=== PATIENT | female | born 1965 | race Hispanic/Latino ===

== ENCOUNTER 2018-12-24 03:57 | Inpatient (IN) | payer BC ==
[2018-12-24 04:23] LABS: APPEARANCE,URINE Clear (CLEAR); BILIRUBIN,URINE Negative (NEGATIVE); COLOR,URINE Yellow (YELLOW); GLUCOSE, URINE (UA) Negative (NEGATIVE); KETONES,URINE Negative (NEGATIVE); LEUKOCYTE ESTERASE ,URINE Trace (NEGATIVE); NITRATE,URINE Negative (NEGATIVE); OCCULT BLOOD,URINE Negative (NEGATIVE); PROTEIN,URINE Negative (NEGATIVE)
[2018-12-24] MEDS ORDERED: MORPHINE SULFATE 4 MG/1ML SYG ONE (04:24)
[2018-12-24] MEDS ORDERED: ONDANSETRON HCL 4 MG/2 ML VIAL ONE ×2 (04:24→05:44)
[2018-12-24 04:42] LABS: BACTERIA,URINE Few /HPF (None Seen); RBC,URINE 0-1 /HPF (0-1)
[2018-12-24 04:43] LABS: BASOPHILS % (AUTO) 0.4 % (0.0-5.0); EOSINOPHILS % (AUTO) 0.6 % (0.0-8.0); HEMATOCRIT 41.5 % (36-48); MEAN CORPUSCULAR HEMOGLOBIN 27.4 pg (27.0-33.0); MEAN CORPUSCULAR HGB CONC 34.4 g/dL (32.0-36.0); MEAN CORPUSCULAR VOLUME 79.8 fL (79-99); MONOCYTES % (AUTO) 9.9 % (3.0-13.0); NEUTROPHILS % (AUTO) 50.1 % (40.0-77.0); NUCLEATED RED BLOOD CELLS 0.1 % (0.0-0.19); PLATELET COUNT (AUTO) 209 K/uL (130-400); RED CELL DISTRIBUTION WIDTH 13.3 % (11.0-15.5); WHITE BLOOD COUNT (AUTO) 7.8 K/uL (4.8-10.8)
[2018-12-24 04:53] LABS: CARBON DIOXIDE 28 mmol/L (21-32); CHLORIDE 107 mmol/L (101-111); CREATININE 0.5 mg/dL (0.5-1.5); GLOMERULAR FILTR. RATE CALC 138 mL/min (>60); GLUCOSE,RANDOM 116 mg/dL (70-105); POTASSIUM 4.3 mmol/L (3.5-5.1); SODIUM SERUM 144 mmol/L (136-145); UREA NITROGEN, BLOOD 14 mg/dL (7-18)
[2018-12-24 04:55] LABS: INR 1.03 (0.85-1.15); PARTIAL THROMBOPLASTIN TIME 27.3 SEC (26.3-35.5); PROTHROMBIN TIME 10.8 SEC (9.6-11.6)
[2018-12-24 04:57] LABS: ALANINE AMINOTRANSFERASE 48 U/L (12-78); ALBUMIN 3.9 g/dL (3.5-5.0); ASPARTATE AMINOTRANSFERASE 45 U/L (10-37); BILIRUBIN,DIRECT < 0.1 mg/dL (0.0-0.3); BILIRUBIN,TOTAL 0.6 mg/dL (0.2-1.0); LIPASE 293 U/L (114-286); TOTAL PROTEIN, SERUM 8.3 g/dL (6.0-8.3)
[2018-12-24] MEDS ORDERED: HYDROMORPHONE 1 MG/1 ML AMP ONE (05:45)
[2018-12-24] MEDS ORDERED: SODIUM CHLORIDE 0.9% 1000ML 1,000 ML IV SCH (06:33)
[2018-12-24] MEDS ORDERED: ONDANSETRON HCL 4 MG/2 ML VIAL IV PRN (06:45)
[2018-12-24] MEDS: CEFTRIAXONE SODIUM 1 GM IVP SCH (06:45)
[2018-12-24] MEDS ORDERED: MORPHINE SULFATE 2 MG/ML 1ML SYG IV PRN (06:45)
[2018-12-24] MEDS ORDERED: CEFTRIAXONE SODIUM 2 GM VIAL IVP SCH (06:45)
[2018-12-24] MEDS ORDERED: CEFTRIAXONE SODIUM 1 GM ONE (06:56)
[2018-12-24] MEDS ORDERED: DIATR MEGLU/DIATRIZOATE SODIUM 30 ML BOTTLE ONE (07:08)
[2018-12-24] MEDS ORDERED: ENOXAPARIN SODIUM 30 MG/0.3 ML SQ ONE (08:01)
[2018-12-24] MEDS: FAMOTIDINE/PF 20 MG/2 ML VIAL IV SCH ×2 (09:00→20:39)
[2018-12-24] MEDS: ENOXAPARIN SODIUM 30 MG/0.3 ML SQ SCH (09:00)
[2018-12-24] MEDS ORDERED: IOHEXOL-350 75 ML VIAL IV ONE (10:36)
[2018-12-24 11:15] VITALS: BP 123/65
[2018-12-24] MEDS ORDERED: PROP10TA10 PO (11:41)
[2018-12-24] MEDS ORDERED: METH10TA7 PO (11:41)
--- NOTE | 2018-12-24 13:30 | NUR ---
AMANDA العلي rounding on patient
[2018-12-24 16:00] VITALS: BP 121/63
[2018-12-24 19:28] VITALS: BP 119/71
[2018-12-24 23:26] VITALS: BP 125/70
[2018-12-25 03:30] VITALS: BP 129/72
[2018-12-25 05:21] LABS: CREATININE 0.4 mg/dL (0.5-1.5); POTASSIUM 3.3 mmol/L (3.5-5.1)
[2018-12-25] MEDS: CEFTRIAXONE SODIUM 1 GM IVP SCH (06:13)
[2018-12-25] MEDS ORDERED: ACETAMINOPHEN 325 MG TAB ONE (06:40)
[2018-12-25] MEDS ORDERED: ACETAMINOPHEN 325 MG TAB PO PRN (06:45)
[2018-12-25 07:18] LABS: BASOPHILS % (AUTO) 0.2 % (0.0-5.0); EOSINOPHILS % (AUTO) 0.5 % (0.0-8.0); HEMATOCRIT 36.8 % (36-48); LYMPHOCYTES % (AUTO) 29.1 % (21.0-51.0); MEAN CORPUSCULAR HEMOGLOBIN 27.1 pg (27.0-33.0); MEAN CORPUSCULAR HGB CONC 33.7 g/dL (32.0-36.0); MEAN CORPUSCULAR VOLUME 80.4 fL (79-99); MONOCYTES % (AUTO) 9.3 % (3.0-13.0); NEUTROPHILS % (AUTO) 60.9 % (40.0-77.0); NUCLEATED RED BLOOD CELLS 0.1 % (0.0-0.19); PLATELET COUNT (AUTO) 186 K/uL (130-400); RED BLOOD CELL COUNT(AUTO) 4.58 MIL/uL (4.00-5.50); RED CELL DISTRIBUTION WIDTH 13.2 % (11.0-15.5); WHITE BLOOD COUNT (AUTO) 7.6 K/uL (4.8-10.8)
[2018-12-25 08:00] VITALS: BP 119/61
[2018-12-25] MEDS: METHIMAZOLE 10 MG TAB PO SCH (10:03)
[2018-12-25] MEDS: ENOXAPARIN SODIUM 30 MG/0.3 ML SQ SCH (10:07)
[2018-12-25] MEDS: PROPRANOLOL HCL 10 MG TAB PO SCH (10:07)
[2018-12-25] MEDS: FAMOTIDINE/PF 20 MG/2 ML VIAL IV SCH ×2 (10:07→20:11)
[2018-12-25] MEDS: POTASSIUM CHLORIDE 20 MEQ ERTAB PO SCH (10:08)
[2018-12-25 12:00] VITALS: BP 121/67
[2018-12-25] MEDS ORDERED: POTASSIUM CHLORIDE 20 MEQ ERTAB PO PRN (15:00)
[2018-12-25] MEDS ORDERED: POTASSIUM CHLORIDE 10MEQ/100ML 100 ML IV PRN (15:00)
[2018-12-25] MEDS ORDERED: POTASSIUM CHLORIDE 10% ELIXIR 20 MEQ/15 ML UDCUP PO PRN (15:00)
[2018-12-25] MEDS ORDERED: LIDOCAINE HCL-MPF 1% 2ML VIAL IVP PRN (15:00)
--- NOTE | 2018-12-25 15:59 | NUR ---
DCP CM met with pt discussed dc plans. Pt is independent prior to admission, lives at home alone. Denies any equipments/services. Pt feels safe to go back home, still works and drives, arranges own needs. DC plan to home once table. CM to cont to follow up. Addendum: 12/25/18 at 1600 by HARRIS SANDHU LVN CM Amended: Links added.
[2018-12-25 16:00] VITALS: BP 111/73
--- NOTE | 2018-12-25 18:12 | NUR ---
SPOKE TO [place], DR WASHINGTON NOTIFIED OF NEW CONSULT, FOR SOME REASON THE DR HAD NOT BEEN CALLED YET, ALANA AND REPORT WAS GIVEN THAT DEZ WAS THE DR AND NO NEED FOR SX INTERVENTION. DR GARCES STATED HE DOES NOT KNOW THE PT. SO I CALLED DR WASHINGTON
--- NOTE | 2018-12-25 19:25 | NUR ---
SPOKE TO DR WASHINGTON, HE SAID HE WOULD SEE THE PT TOMORROW
[2018-12-25 20:00] VITALS: BP 120/63
[2018-12-25 23:13] VITALS: BP 113/61
[2018-12-26 03:28] VITALS: BP 121/67
[2018-12-26 04:19] LABS: BASOPHILS % (AUTO) 0.3 % (0.0-5.0); EOSINOPHILS % (AUTO) 0.9 % (0.0-8.0); HEMATOCRIT 37.4 % (36-48); LYMPHOCYTES % (AUTO) 35.7 % (21.0-51.0); MEAN CORPUSCULAR HEMOGLOBIN 27.7 pg (27.0-33.0); MEAN CORPUSCULAR HGB CONC 34.5 g/dL (32.0-36.0); MEAN CORPUSCULAR VOLUME 80.3 fL (79-99); MONOCYTES % (AUTO) 9.1 % (3.0-13.0); PLATELET COUNT (AUTO) 181 K/uL (130-400); RED BLOOD CELL COUNT(AUTO) 4.65 MIL/uL (4.00-5.50); RED CELL DISTRIBUTION WIDTH 13.3 % (11.0-15.5); WHITE BLOOD COUNT (AUTO) 7.4 K/uL (4.8-10.8)
[2018-12-26 04:33] LABS: CREATININE 0.4 mg/dL (0.5-1.5); POTASSIUM 3.5 mmol/L (3.5-5.1)
[2018-12-26] MEDS: CEFTRIAXONE SODIUM 1 GM IVP SCH (06:10)
[2018-12-26 08:00] VITALS: BP 115/64
[2018-12-26] MEDS: ENOXAPARIN SODIUM 30 MG/0.3 ML SQ SCH (09:00)
[2018-12-26] MEDS: FAMOTIDINE/PF 20 MG/2 ML VIAL IV SCH ×2 (09:19→21:18)
[2018-12-26] MEDS: PROPRANOLOL HCL 10 MG TAB PO SCH (09:19)
[2018-12-26] MEDS: METHIMAZOLE 10 MG TAB PO SCH (09:19)
[2018-12-26] MEDS: POTASSIUM CHLORIDE 20 MEQ ERTAB PO SCH (09:27)
[2018-12-26 12:02] VITALS: BP 121/73
[2018-12-26 16:00] VITALS: BP 130/67
[2018-12-26 20:15] VITALS: BP 123/73
[2018-12-27 00:34] VITALS: BP 110/66
[2018-12-27 04:00] VITALS: BP 122/76
[2018-12-27] MEDS: CEFTRIAXONE SODIUM 1 GM IVP SCH (06:07)
[2018-12-27] MEDS: POTASSIUM CHLORIDE 20 MEQ ERTAB PO SCH (06:09)
[2018-12-27 07:58] VITALS: BP 110/68
[2018-12-27] MEDS: ENOXAPARIN SODIUM 30 MG/0.3 ML SQ SCH (09:00)
[2018-12-27] MEDS: FAMOTIDINE/PF 20 MG/2 ML VIAL IV SCH (09:21)
[2018-12-27] MEDS: METHIMAZOLE 10 MG TAB PO SCH (09:21)
[2018-12-27] MEDS: PROPRANOLOL HCL 10 MG TAB PO SCH (09:21)
[2018-12-27] MEDS ORDERED: METR-172 PO (11:22)
[2018-12-27] MEDS ORDERED: LEVO500T89 PO (11:22)
[2018-12-27 12:00] VITALS: BP 111/69
--- NOTE | 2018-12-27 14:38 | NUR ---
INSTRUCTIONS DISCHARGE INSTRUCTIONS GIVEN TO PATIENT USING TEACH BACK. NEW PRESCRIPTIONS PLACED IN PACKET ALONG WITH ALL PRINTED INFORMATION AND MD INSTRUCTIONS. PATIENT WILL MAKE F/U APPOINTMENT DURING NEXT REGULAR BUSINESS DAY. IV REMOVED WITH TIP INTACT. DIRECT PRESSURE APPLIED UNTIL HEMOSTASIS ACHIEVED THEN SITE COVERED WITH GAUZE AND SECURED WITH A BAND-AID. PENDING RIDE HOME.
== END 2018-12-27 15:07 | disposition home or self-care (01) | DRG 389 ==
LOC: EDH 03:57 → OBSVTOIN 06:33 → EDHIP 06:33 → 4AH 11:39
PROVIDERS: ADMIT Internal Medicine; ATTEND Internal Medicine
DX: K56.609 Unspecified intestinal obstruction, unspecified as to partial versus complete obstruction (principal); K59.39 Other megacolon; N39.0 Urinary tract infection, site not specified; E05.90 Thyrotoxicosis, unspecified without thyrotoxic crisis or storm; K56.7 Ileus, unspecified; K80.20 Calculus of gallbladder without cholecystitis without obstruction; K59.00 Constipation, unspecified; R74.8 Abnormal levels of other serum enzymes; E87.6 Hypokalemia; Z98.891 History of uterine scar from previous surgery
CPT/HCPCS: 36415; 74176; 74177; 76705; 80048; 80076; 81001; 82948; 83690; 85025; 85610; 85730; 87088; A4218; G0378; J0696; J1170; J1650; J2270; J2405; J3490; Q9963; Q9967

== ENCOUNTER 2019-08-19 07:38 | Emergency (ER) | payer BC ==
[~2019-08-19 07:38] MED LIST: LEVO500T89 PO; METH10TA7 PO; METR-172 PO; PROP10TA10 PO
[2019-08-19] MEDS ORDERED: KETOROLAC TROMETHAMINE 30MG/ML ONE (08:05)
[2019-08-19] MEDS ORDERED: ONDANSETRON HCL 4 MG/2 ML VIAL ONE (08:05)
[2019-08-19] MEDS ORDERED: SODIUM CHLORIDE 0.9% 1000ML 1,000 ML IV ONE (08:06)
[2019-08-19] MEDS ORDERED: MORPHINE SULFATE 2 MG/ML 1ML SYG ONE (08:06)
[2019-08-19 08:09] LABS: BASOPHILS % (AUTO) 0.3 % (0.0-5.0); EOSINOPHILS % (AUTO) 0.8 % (0.0-8.0); HEMATOCRIT 44.3 % (36-48); LYMPHOCYTES % (AUTO) 36.9 % (21.0-51.0); MEAN CORPUSCULAR HEMOGLOBIN 26.7 pg (27.0-33.0); MEAN CORPUSCULAR HGB CONC 32.5 g/dL (32.0-36.0); MEAN CORPUSCULAR VOLUME 82.2 fL (79-99); MONOCYTES % (AUTO) 6.8 % (3.0-13.0); NEUTROPHILS % (AUTO) 54.9 % (40.0-77.0); PLATELET COUNT (AUTO) 232 K/uL (130-400); RED BLOOD CELL COUNT(AUTO) 5.39 MIL/uL (4.00-5.50); RED CELL DISTRIBUTION WIDTH 13.3 % (11.0-15.5); WHITE BLOOD COUNT (AUTO) 10.8 K/uL (4.8-10.8)
[2019-08-19 08:22] LABS: APPEARANCE,URINE Clear (CLEAR); BILIRUBIN,URINE Negative (NEGATIVE); COLOR,URINE Yellow (YELLOW); GLUCOSE, URINE (UA) Negative (NEGATIVE); KETONES,URINE Negative (NEGATIVE); LEUKOCYTE ESTERASE ,URINE Negative (NEGATIVE); NITRATE,URINE Negative (NEGATIVE); OCCULT BLOOD,URINE Negative (NEGATIVE); PROTEIN,URINE Negative (NEGATIVE); UROBILINOGEN,URINE 0.2 mg/dL (0.2-1.0)
[2019-08-19 08:27] LABS: CREATININE 0.6 mg/dL (0.5-1.5); POTASSIUM 3.8 mmol/L (3.5-5.1)
[2019-08-19 08:33] LABS: BILIRUBIN,TOTAL 0.5 mg/dL (0.2-1.0); TOTAL PROTEIN, SERUM 8.1 g/dL (6.0-8.3)
== END 2019-08-19 10:45 | disposition home or self-care (01) ==
LOC: EDH 07:38
DX: K80.20 Calculus of gallbladder without cholecystitis without obstruction (principal); E07.9 Disorder of thyroid, unspecified
CPT/HCPCS: 36415; 76705; 80053; 81003; 82150; 83690; 84484; 85025; 93005; 96361; 96374; 96375; 99285; J1885; J2405; J7030

== ENCOUNTER 2023-06-15 04:50 | Emergency (ER) | payer BC ==
[~2023-06-15] VITALS: Ht 162.6 cm; Wt 72.7 kg
[~2023-06-15 04:50] MED LIST changes: +LEVO-70 PO; -LEVO500T89 PO; +METH-387 PO; -METH10TA7 PO
[2023-06-15] MEDS ORDERED: 0.9%NACL 1000ML 1,000 ML IV ONE (05:30)
[2023-06-15] MEDS ORDERED: FAMOTIDINE 20MG VIAL IV ONE (05:30)
[2023-06-15] MEDS ORDERED: METOCLOPRAMIDE 10 MG/2 ML VIAL IVP ONE (05:30)
[2023-06-15] MEDS ORDERED: MORPHINE 4 MG SYG IVP ONE (05:30)
[2023-06-15 05:31] LABS: BASOPHILS # (AUTO) 0.04 K/uL (0.00-0.20); BASOPHILS % (AUTO) 0.3 % (0.0-5.0); EOSINOPHILS # (AUTO) 0.09 K/uL (0.00-0.70); EOSINOPHILS % (AUTO) 0.6 % (0.0-8.0); HEMATOCRIT 44.9 % (36-48); IMMATURE GRANULOCYTE ABSOLUTE 0.04 K/uL (0-1); LYMPHOCYTES # (AUTO) 2.6 K/uL (1.0-4.8); MEAN CORPUSCULAR HEMOGLOBIN 27.8 pg (27.0-33.0); MEAN CORPUSCULAR HGB CONC 33.4 g/dL (32.0-36.0); MEAN CORPUSCULAR VOLUME 83.1 fL (79-99); MONOCYTES # (AUTO) 0.6 K/uL (0.1-1.0); MONOCYTES % (AUTO) 4.5 % (3.0-13.0); NEUTROPHILS # (AUTO) 10.4 K/uL (1.8-7.7); NEUTROPHILS % (AUTO) 75.3 % (40.0-77.0); PLATELET COUNT (AUTO) 216 K/uL (130-400); RED CELL DISTRIBUTION WIDTH 12.7 % (11.0-15.5); WHITE BLOOD COUNT (AUTO) 13.9 K/uL (4.8-10.8)
[2023-06-15 05:32] LABS: BILIRUBIN,URINE NEGATIVE (NEGATIVE); COLOR,URINE YELLOW (YELLOW); GLUCOSE, URINE (UA) NEGATIVE (NEGATIVE); KETONES,URINE NEGATIVE (NEGATIVE); LEUKOCYTE ESTERASE ,URINE NEGATIVE Leu/uL (NEGATIVE); NITRATE,URINE NEGATIVE (NEGATIVE); OCCULT BLOOD,URINE NEGATIVE (NEGATIVE); PROTEIN,URINE 10 mg/dL (NEGATIVE); UROBILINOGEN,URINE 0.2 mg/dL (0.2-1.0)
[2023-06-15 05:37] LABS: ADD UA MICROSCOPIC YES; APPEARANCE,URINE SLIGHTLY CLOUDY (CLEAR)
[2023-06-15 05:46] LABS: MUCUS,URINE RARE LPF (None Seen); RBC,URINE 0-1 /HPF (0-1); SQUAMOUS EPITHELIAL CELL,UR MANY /HPF (0-2)
[2023-06-15 06:37] LABS: BILIRUBIN,TOTAL 0.6 mg/dL (0.2-1.0); CREATININE 0.6 mg/dL (0.5-1.5); TOTAL PROTEIN, SERUM 7.8 g/dL (6.0-8.3)
[2023-06-15] MEDS ORDERED: LIDOCAINE HCL 2% VISCOUS 15 ML UDCUP PO ONE (07:00)
[2023-06-15] MEDS ORDERED: MAG/ALUM/SIMETH 30 ML UDCUP PO ONE (07:00)
[2023-06-15] MEDS ORDERED: IOHEXOL 350 MG/ML 100ML INFUS..BTL IV ONE (07:04)
[2023-06-15] MEDS ORDERED: ONDA4TAB10 PO (08:04)
[2023-06-15] MEDS ORDERED: PANT20TA18 PO (08:04)
[2023-06-15 08:30] VITALS: BP 129/74; PULSE 74; RESP 16; O2SAT 97
== END 2023-06-15 08:29 | disposition home or self-care (01) ==
LOC: EDH 04:50
DX: R10.13 Epigastric pain (principal); R11.10 Vomiting, unspecified; Z79.899 Other long term (current) drug therapy; Z90.49 Acquired absence of other specified parts of digestive tract
CPT/HCPCS: 99284; 74178; 96374; 96375; 96361; 82550; 84484; 80053; 83690; 85025; 83605; 81001; 36415; 93005; J3490; J7030; J2270; J2765; Q9967

== ENCOUNTER 2023-08-03 10:01 | Emergency (ER) | payer BC ==
[~2023-08-03] VITALS: Ht 162.6 cm; Wt 68.0 kg
[~2023-08-03 10:01] MED LIST changes: +ONDA4TAB10 PO; +PANT20TA18 PO
[2023-08-03 10:51] VITALS: BP 149/75; PULSE 70; RESP 16
[2023-08-03 12:32] LABS: BASOPHILS # (AUTO) 0.03 K/uL (0.00-0.20); BASOPHILS % (AUTO) 0.3 % (0.0-5.0); EOSINOPHILS # (AUTO) 0.06 K/uL (0.00-0.70); EOSINOPHILS % (AUTO) 0.7 % (0.0-8.0); HEMATOCRIT 47.9 % (36-48); IMMATURE GRANULOCYTE ABSOLUTE 0.03 K/uL (0-1); LYMPHOCYTES # (AUTO) 2.7 K/uL (1.0-4.8); LYMPHOCYTES % (AUTO) 31.8 % (21.0-51.0); MEAN CORPUSCULAR HEMOGLOBIN 28.1 pg (27.0-33.0); MEAN CORPUSCULAR HGB CONC 32.8 g/dL (32.0-36.0); MEAN CORPUSCULAR VOLUME 85.8 fL (79-99); MONOCYTES # (AUTO) 0.6 K/uL (0.1-1.0); MONOCYTES % (AUTO) 7.1 % (3.0-13.0); NEUTROPHILS # (AUTO) 5.1 K/uL (1.8-7.7); NEUTROPHILS % (AUTO) 59.8 % (40.0-77.0); PLATELET COUNT (AUTO) 233 K/uL (130-400); RED BLOOD CELL COUNT(AUTO) 5.58 MIL/uL (4.00-5.50); RED CELL DISTRIBUTION WIDTH 13.9 % (11.0-15.5); WHITE BLOOD COUNT (AUTO) 8.6 K/uL (4.8-10.8)
[2023-08-03 12:39] LABS: INR 0.94 (0.85-1.15)
[2023-08-03 12:40] LABS: CREATININE 0.8 mg/dL (0.5-1.5); POTASSIUM 3.3 mmol/L (3.5-5.1)
[2023-08-03 12:40] LABS: APPEARANCE,URINE CLEAR (CLEAR); BILIRUBIN,URINE NEGATIVE (NEGATIVE); COLOR,URINE YELLOW (YELLOW); GLUCOSE, URINE (UA) NEGATIVE (NEGATIVE); KETONES,URINE NEGATIVE (NEGATIVE); LEUKOCYTE ESTERASE ,URINE NEGATIVE Leu/uL (NEGATIVE); MUCUS,URINE RARE LPF (None Seen); NITRATE,URINE NEGATIVE (NEGATIVE); OCCULT BLOOD,URINE NEGATIVE (NEGATIVE); PROTEIN,URINE 10 mg/dL (NEGATIVE); RBC,URINE 0-1 /HPF (0-1); SQUAMOUS EPITHELIAL CELL,UR FEW /HPF (0-2); UROBILINOGEN,URINE 0.2 mg/dL (0.2-1.0); WBC,URINE 0-1 /HPF (0-1)
[2023-08-03 12:41] LABS: PARTIAL THROMBOPLASTIN TIME 28.5 SEC (26.3-35.5)
[2023-08-03 12:53] LABS: ALBUMIN 3.9 g/dL (3.5-5.0); BILIRUBIN,TOTAL 1.1 mg/dL (0.2-1.0); THYROID STIMULATING HORMONE 0.82 uIU/mL (0.36-3.74); TOTAL PROTEIN, SERUM 8.6 g/dL (6.0-8.3)
== END 2023-08-03 15:46 | disposition home or self-care (01) ==
LOC: EDH 10:01
DX: R23.3 Spontaneous ecchymoses (principal); R21 Rash and other nonspecific skin eruption; M79.605 Pain in left leg; R58 Hemorrhage, not elsewhere classified; G43.909 Migraine, unspecified, not intractable, without status migrainosus; F41.9 Anxiety disorder, unspecified; E03.9 Hypothyroidism, unspecified; Z79.899 Other long term (current) drug therapy; Z98.890 Other specified postprocedural states; Z90.49 Acquired absence of other specified parts of digestive tract
CPT/HCPCS: 36415; 80053; 81001; 84443; 85025; 85610; 85730

== ENCOUNTER 2024-08-01 02:03 | Emergency (ER) | payer BC ==
[~2024-08-01] VITALS: Ht 162.6 cm; Wt 71.7 kg
[~2024-08-01 02:03] MED LIST changes: +ONDA-243 PO; -ONDA4TAB10 PO
--- NOTE | 2024-08-01 02:06 | NUR ---
UA CUP PROVIDED
[2024-08-01 02:19] LABS: APPEARANCE,URINE CLEAR (CLEAR); BILIRUBIN,URINE NEGATIVE (NEGATIVE); COLOR,URINE YELLOW (YELLOW); GLUCOSE, URINE (UA) NEGATIVE (NEGATIVE); KETONES,URINE NEGATIVE (NEGATIVE); LEUKOCYTE ESTERASE ,URINE NEGATIVE Leu/uL (NEGATIVE); NITRATE,URINE NEGATIVE (NEGATIVE); OCCULT BLOOD,URINE SMALL (NEGATIVE); PROTEIN,URINE NEGATIVE (NEGATIVE); UROBILINOGEN,URINE 0.2 mg/dL (0.2-1.0)
[2024-08-01 02:21] LABS: ADD UA MICROSCOPIC YES
[2024-08-01 02:22] LABS: BASOPHILS # (AUTO) 0.02 K/uL (0.00-0.20); BASOPHILS % (AUTO) 0.1 % (0.0-5.0); EOSINOPHILS # (AUTO) 0.02 K/uL (0.00-0.70); EOSINOPHILS % (AUTO) 0.1 % (0.0-8.0); HEMATOCRIT 46.8 % (36-48); IMMATURE GRANULOCYTE ABSOLUTE 0.05 K/uL (0-1); LYMPHOCYTES # (AUTO) 1.3 K/uL (1.0-4.8); LYMPHOCYTES % (AUTO) 8.8 % (21.0-51.0); MEAN CORPUSCULAR HEMOGLOBIN 28.8 pg (27.0-33.0); MEAN CORPUSCULAR HGB CONC 33.3 g/dL (32.0-36.0); MEAN CORPUSCULAR VOLUME 86.5 fL (79-99); MONOCYTES # (AUTO) 0.8 K/uL (0.1-1.0); MONOCYTES % (AUTO) 5.4 % (3.0-13.0); NEUTROPHILS # (AUTO) 12.9 K/uL (1.8-7.7); NEUTROPHILS % (AUTO) 85.3 % (40.0-77.0); PLATELET COUNT (AUTO) 229 K/uL (130-400); RED BLOOD CELL COUNT(AUTO) 5.41 MIL/uL (4.00-5.50); RED CELL DISTRIBUTION WIDTH 12.6 % (11.0-15.5); WHITE BLOOD COUNT (AUTO) 15.1 K/uL (4.8-10.8)
[2024-08-01 02:23] LABS: BACTERIA,URINE RARE /HPF (None Seen); MUCUS,URINE FEW LPF (None Seen); SQUAMOUS EPITHELIAL CELL,UR RARE /HPF (0-2)
[2024-08-01 02:33] LABS: CREATININE 0.8 mg/dL (0.5-1.0); POTASSIUM 3.4 mmol/L (3.5-5.1)
[2024-08-01 02:38] LABS: BILIRUBIN,DIRECT 0.2 mg/dL (0.0-0.3); BILIRUBIN,TOTAL 1.1 mg/dL (0.2-1.0); TOTAL PROTEIN, SERUM 8.6 g/dL (6.0-8.3)
[2024-08-01] MEDS: LACTATED RINGERS 1000ML 1,000 ML IV ONE (02:57)
[2024-08-01] MEDS: ondanSETRON 4MG INJ IVP ONE (02:58)
[2024-08-01] MEDS: morPHINE 4 MG SYG IVP ONE ×2 (02:58→05:12)
--- NOTE | 2024-08-01 04:59 | ERN ---
General Chief Complaint: Abdominal Pain Stated Complaint: ABD PAIN, N/V/D Time Seen by MD: 02:12 History of Present Illness Initial Comments Ms. Acosta is a very pleasant 59-year-old female who presents today with a chief complaint of abdominal pain. Patient reports that she has had some fried chicken earlier this afternoon which caused her to have increased abdominal pain. Patient states that pain radiates to her back. She denies fevers or chills Allergies: Coded Allergies: No Known Allergies (Verified Allergy, Unknown, 12/24/18) Home Meds Active Scripts Pantoprazole Sodium (Pantoprazole Sodium) 20 Mg Tablet.dr, 20 MG PO DAILY, #5 TAB Prov:LUIS ALBERTO ALMAGUER MD 06/15/23 Ondansetron (Ondansetron Odt) 4 Mg Tab.rapdis, 4 MG PO Q6HPRN PRN for nausea, #12 TAB 0 Refills Prov:LUIS ALBERTO ALMAGUER MD 06/15/23 Metronidazole (Metronidazole) 500 Mg Tablet, 500 MG PO TID for 5 Days, TAB Prov:LUPIS KEYES NP 12/27/18 Levofloxacin (Levofloxacin) 500 Mg Tablet, 500 MG PO DAILY for 5 Days, TAB Prov:LUPIS KEYES NP 12/27/18 Reported Medications Propranolol HCl (Propranolol HCl) 10 Mg Tablet, 10 MG PO DAILY, TAB 12/24/18 Methimazole (Methimazole) 10 Mg Tablet, 10 MG PO DAILY, TAB 12/24/18 Past Medical History Past Medical History: Anxiety, GERD, Hyperthyroid, Migraines, Other Medical History Other: THYROID Past Surgical History: Cholecystectomy, Female( History) History: Not Applicable ROS Dictation Constitutional: Negative for fever,chills, and weight loss Eyes: Negative for injury, pain,redness, and discharge ENT: Negative for injury,pain or swelling Cardiovascular: Negative for chest pain, palpitations, and edema Respiratory: Negative for shortness of breath, cough, and wheezing, Abdomen/GI: Positive for abdominal pain Back: Negative for injury and pain : Negative for injury, bleeding and discharge MS/Extremity: Negative for injury and deformity Skin: Negative for rash, and discoloration Neuro: Negative for headache, weakness, numbness, tingling, and seizure Psych: Negative for suicide ideation, homicidal ideation, and hallucinations Physical Exam Physical Exam Dictation General: awake, alert, NAD Head/Face: Normocephalic, atraumatic Eyes: PERRL, EOMI, ENT: oral cavity clear, TMs clear, no signs of infection Neck: Trachea midline, supple Cardiovascular: Tachycardic normal S1-S2 Respiratory: CTAB, no respiratory distress, No rales or wheezes Abdomen: Positive for pain in the epigastric Skin: Warm, dry, normal turgor, no rash MS/Extremity: Pulses equal, no cyanosis, neurovascular intact, FROM Neuro: COAx4, GCS 15, strength 5/5, CN 2-12 intact Psych: Normal behavior, mood, and affect normal Results Laboratory and Microbiology Lab and Micro Result Laboratory Tests Test 08/01/24 02:10 08/01/24 02:16 Urine Color YELLOW (YELLOW) Urine Appearance CLEAR (CLEAR) Urine pH 5.0 (5.0-8.0) Urine Specific [place] 1.025 (1.001-1.031) Urine Protein NEGATIVE mg/dL (NEGATIVE) Urine Glucose (UA) NEGATIVE mg/dL (NEGATIVE) Urine Ketones NEGATIVE mg/dL (NEGATIVE) Urine Occult Blood SMALL (NEGATIVE) H Urine Nitrate NEGATIVE (NEGATIVE) Urine Bilirubin NEGATIVE mg/dL (NEGATIVE) Urine Urobilinogen 0.2 mg/dL (0.2-1.0) Urine Leukocyte Esterase NEGATIVE [place]awaf/uL Urine RBC 2-5 /HPF (0-1) H Urine WBC 2-5 /HPF (0-1) H Urine Squamous Epithelial Cells RARE /HPF (0-2) Urine Bacteria RARE /HPF (None Seen) White Blood Count 15.1 K/uL (4.8-10.8) H Red Blood Count 5.41 MIL/uL (4.00-5.50) Hemoglobin 15.6 g/dL (12.0-16.0) Hematocrit 46.8 % (36-48) Mean Corpuscular Volume 86.5 fL (79-99) Mean Corpuscular Hemoglobin 28.8 pg (27.0-33.0) Mean Corpuscular Hemoglobin Concent 33.3 g/dL (32.0-36.0) Red Cell Distribution Width 12.6 % (11.0-15.5) Platelet Count 229 K/uL (130-400) Mean Platelet Volume 11.0 fL (7.5-10.5) H Immature Granulocyte % (Auto) 0.3 % (0-1) Neutrophils (%) (Auto) 85.3 % (40.0-77.0) H Lymphocytes (%) (Auto) 8.8 % (21.0-51.0) L Monocytes (%) (Auto) 5.4 % (3.0-13.0) Eosinophils (%) (Auto) 0.1 % (0.0-8.0) Basophils (%) (Auto) 0.1 % (0.0-5.0) Neutrophils # (Auto) 12.9 K/uL (1.8-7.7) H Lymphocytes # (Auto) 1.3 K/uL (1.0-4.8) Monocytes # (Auto) 0.8 K/uL (0.1-1.0) Eosinophils # (Auto) 0.02 K/uL (0.00-0.70) Basophils # (Auto) 0.02 K/uL (0.00-0.20) Absolute Immature Granulocyte (auto 0.05 K/uL (0-1) Nucleated Red Blood Cells 0.0 % (0.0-0.19) White Cell Morphology Comment See comments Sodium Level 140 mmol/L (136-145) Potassium Level 3.4 mmol/L (3.5-5.1) L Chloride Level 104 mmol/L (101-111) Carbon Dioxide Level 29 mmol/L (21-32) Blood Urea Nitrogen 10 mg/dL (7-18) Creatinine 0.8 mg/dL (0.5-1.0) Glomerular Filtration Rate Calc 85 mL/min (>90) Random Glucose 139 mg/dL (70-105) H Total Calcium 9.1 mg/dL (8.5-10.1) Total Bilirubin 1.1 mg/dL (0.2-1.0) H Direct Bilirubin 0.2 mg/dL (0.0-0.3) Aspartate Amino Transf (AST/SGOT) 12 U/L (10-37) Alanine Aminotransferase (ALT/SGPT) 17 U/L (12-78) Alkaline Phosphatase 61 U/L (50-136) Total Creatine Kinase 47 U/L (21-232) # Troponin I High Sensitivity < 4 ng/L (4-50) L Total Protein 8.6 g/dL (6.0-8.3) H Albumin 4.0 g/dL (3.5-5.0) Amylase Level 50 U/L (25-115) Lipase 44 U/L (16-77) MDM Patient was sent improvement of her abdominal pain with the GI cocktail. Patient reports having increased belching and dyspepsia likely reflecting untreated GERD MDM: Differential diagnosis: GERD Rationale: Tests considered and ordered secondary to shared decision making include: Previous outside records reviewed: Old ER visits. Risk of complication and/or morbidity or mortality of patient management: None Medications-Per medication reconciliation Need for hospitalization: Patient does not meet criteria for hospitalization. Need for emergency major/minor surgery: No There are no social concerns with this patient. Prescription drug management Prescriptions will include symptomatic care Patient's prior external medical records from other ER visits were reviewed by me as indicated. Prior testing and results from previous visits were reviewed. Prior tests were taken into account with medical decision making and resource utilization, independent historian/historians were used to obtain complete medical history. I independently interpreted the test that were performed, results were reviewed by me and considered findings on radiology if ordered. Medical management and examination interpretation discussions were had by me with other qualified healthcare professionals as indicated for the patient's care. ED Course Orders Procedure Category Date Status Time Vital Signs Per CPOE 08/01/24 Transmitted Routine 02:06 Saline Lock Iv CPOE 08/01/24 Transmitted 02:06 Cbc With Differential LAB 08/01/24 Complete 02:06 Lipase LAB 08/01/24 Complete 02:06 Urinalysis Profile LAB 08/01/24 Complete 02:06 12 Lead Ekg Tracing- EKG 08/01/24 Logged Technical 02:06 Troponin I High LAB 08/01/24 Complete Sensitivity 02:06 Basic Metabolic Panel LAB 08/01/24 Complete 02:06 Hepatic Function Panel LAB 08/01/24 Complete 02:06 Ct Abdomen/Pelvis CT 08/01/24 Taken W/Contrast 02:39 Lactated Ringers PHA 08/01/24 Complete 1000ml (Lactated 03:00 Morphine 4mg Syg PHA 08/01/24 Complete (Morphine 4mg Syg) 03:00 Ondansetron 4mg Inj PHA 08/01/24 Complete (Zofran 4mg Inj) 03:00 Amylase LAB 08/01/24 Complete 02:16 Creatine Kinase, Total LAB 08/01/24 Complete 02:16 Morphine 4mg Syg PHA 08/01/24 Complete (Morphine 4mg Syg) 05:00 Mag/Alum/Simeth 30ml PHA 08/01/24 Complete (Maalox Plus 30ml) 05:00 Lidocaine Hcl 2% PHA 08/01/24 Complete Viscous (Lidocaine Hcl 05:00 Dicyclomine Hcl PHA 08/01/24 Complete (Bentyl 10mg/5ml 05:00 Current Medications Medications (Trade) Dose Ordered Sig/Gregg Route PRN Reason Start Time Stop Time Status Last Admin Dose Admin Al Hydroxide/Mg Hydroxide (MAALox PLUS 30ML) 30 ml ONCE ONCE PO 08/01/24 05:00 08/01/24 05:01 DC 08/01/24 05:12 Dicyclomine HCl (Bentyl 10mg/5ml Syrup) 10 mg ONCE ONCE PO 08/01/24 05:00 08/01/24 05:01 DC 08/01/24 05:13 Lactated Ringer's 1,000 ml @ 0 mls/hr ONCE ONCE IV 08/01/24 03:00 08/01/24 03:01 DC 08/01/24 02:57 Lidocaine HCl (Lidocaine HCl 2% Viscous) 10 ml ONCE ONCE PO 08/01/24 05:00 08/01/24 05:01 DC 08/01/24 05:13 Morphine Sulfate (morPHINE 4MG SYG) 4 mg ONCE ONCE IVP 08/01/24 03:00 08/01/24 03:01 DC 08/01/24 02:58 Morphine Sulfate (morPHINE 4MG SYG) 4 mg ONCE ONCE IVP 08/01/24 05:00 08/01/24 05:01 DC 08/01/24 05:12 Ondansetron HCl (zoFRAN 4MG INJ) 4 mg ONCE ONCE IVP 08/01/24 03:00 08/01/24 03:01 DC 08/01/24 02:58 Vital Signs Date Time Temp Pulse Resp B/P (MAP) Pulse Ox O2 Delivery O2 Flow Rate FiO2 08/01/24 05:24 98.2 68 19 136/67 97 Room Air* 0 08/01/24 03:48 98.2 70 20 148/69 99 Room Air* 0 08/01/24 02:19 98.4 86 18 138/74 98 Room Air* 0 08/01/24 02:05 97.2 75 16 127/73 98 Room Air DX & DISP Disposition: Discharge Departure Impression: Primary Impression: Dyspepsia Condition: Stable Scripts Pantoprazole Sodium (Protonix) 40 Mg Ectab 1 TAB PO DAILY for 30 Days, #30 TAB 0 Refills Prov: DAVID JIMENEZ MD 08/01/24 Sucralfate (Carafate Susp) 1 Gram/10 Ml Susp 10 ML PO QID for 30 Days, #1260 ML 0 Refills before food and bedtime Prov: DAVID JIMENEZ MD 08/01/24 Additional Instructions: Please take your anti reflux medicine as directed. Please see your primary care physician in the next 1-7 days for continuance of care. Please consider referral to gastroenterology for evaluation of gastritis/GERD Referrals: RICCARDO MACHUCA MD (PCP) DAVID JIMENEZ MD Aug 01, 2024 04:59
[2024-08-01] MEDS: MAG/ALUM/SIMETH 30 ML UDCUP PO ONE (05:12)
[2024-08-01] MEDS: LIDOCAINE HCL 2% VISCOUS 15 ML UDCUP PO ONE (05:13)
[2024-08-01] MEDS: DICYCLOMINE HCL 10 MG/5 ML ML PO ONE (05:13)
[2024-08-01 05:24] VITALS: BP 136/67; PULSE 68; RESP 19; TEMP 98.3; O2SAT 97
[2024-08-01] MEDS ORDERED: CARAL PO (05:58)
[2024-08-01] MEDS ORDERED: PANT40TA55 PO (05:58)
--- NOTE | 2024-08-01 08:33 | HMCIMG ---
Exam Type: CT ABDOMEN/PELVIS W/CONTRAST Clinical Information: Abdominal Pain Comparison: None Contrast: 100 cc's Isovue 370 IV, no complications or adverse reactions CT Dose Index (CTDI): 31.60 mGy Dose Length Product (DLP): 1740.80 total mGy-cm Findings: No evidence of nephro or ureterolithiasis is found. No hydronephrosis or ureteral dilatation is seen. The lung bases are clear. The stomach is unremarkable. It shows no wall thickening. No gross ulceration is seen. It is not overly distended. There are no surrounding inflammatory changes. No wall lesions are identified to suggest cancer. The spleen is unremarkable. It is not enlarged. The pancreas shows normal anatomy. It is not fatty replaced. It shows no lesions. The pancreatic duct is not dilated. The gallbladder is surgically absent. The adrenal glands are unremarkable. There is no enlargement. No lesions are noted. The liver is unremarkable. It shows no focal masses. The appendix is unremarkable. It shows no evidence of inflammation. No appendicolith is seen. The small bowel is unremarkable. There is no evidence of dilatation to suggest obstruction. No evidence of adynamic ileus is seen. There is no small bowel wall thickening to suggest enteritis. The colon is unremarkable. The urinary bladder is unremarkable. There is no wall thickening to suggest tumor or inflammation. There are no intraluminal calculi. There are no diverticula. There is no evidence of chronic bladder outlet obstruction. There is no evidence of urinary bladder distention to suggest urinary retention. Prominent vascularity of the left adnexa is seen which could represent pelvic congestion syndrome. Please correlate. The bony and vascular structures are unremarkable for the patient's age. IMPRESSION: Prominent vascularity of the left adnexa is seen which could represent pelvic congestion syndrome. Please correlate. This study was performed using dose reduction techniques to include automated exposure control and/or adjustment of the mA and/or kV according to patient size.
--- NOTE | 2024-08-01 09:12 | EKG ---
[facility] Test Date: 2024-08-01 Test Time: 02:39:07 Pat Name: ALPA KENNEDY Department: ED Room: Gender: F Sightseeing Guide: 0991 : 1965 Requested By: DAVID JIMENEZ Order Number: [id number] Reading MD: Nicanor Henriquez Measurements Intervals [place] Rate: 68 P: 46 CA: 137 QRS: -24 QRSD: 94 T: 58 QT: 400 QTc: 427 Interpretive Statements Sinus rhythm Compared to ECG 06/15/2023 05:08:20 Left-axis deviation no longer present Electronically Signed On 08-01-2024 11:52:32 PASSENGER SERVICE SUPERVISOR by Nicanor Henriquez Please click the below link to view image of tracing.
== END 2024-08-01 06:17 | disposition home or self-care (01) ==
LOC: EDH 02:03
DX: R10.13 Epigastric pain (principal); E05.90 Thyrotoxicosis, unspecified without thyrotoxic crisis or storm; K21.9 Gastro-esophageal reflux disease without esophagitis; F41.9 Anxiety disorder, unspecified; Z79.899 Other long term (current) drug therapy; Z90.49 Acquired absence of other specified parts of digestive tract
CPT/HCPCS: 99284; 74177; 96374; 96361; 96375; 82150; 82550; 80076; 84484; 80048; 83690; 85025; 81001; 36415; 96376; 93005; J2405; J2270 ×2

== ENCOUNTER 2025-04-06 07:40 | Inpatient (IN) | payer BC ==
[~2025-04-06] VITALS: Ht 162.6 cm; Wt 74.4 kg
[~2025-04-06 07:40] MED LIST changes: +CARAL PO; +PANT40TA55 PO
[2025-04-06] MEDS: 0.9%NACL 1000ML 1,000 ML IV ONE ×2 (08:08→13:10)
--- NOTE | 2025-04-06 08:10 | ERN ---
General Chief Complaint: Abdominal Pain Stated Complaint: ABD PAIN Time Seen by MD: 07:46 Source: patient History of Present Illness Initial Comments Patient is a 60-year-old female coming in complaining of epigastric pain. Patient states that she does has a history of IBS as well as gastritis. Patient has been treated in the past for similar symptoms. No fever or chills. Allergies: Coded Allergies: No Known Allergies (Verified Allergy, Unknown, 12/24/18) Home Meds Active Scripts Pantoprazole Sodium (Protonix) 40 Mg Ectab, 1 TAB PO DAILY for 30 Days, #30 TAB 0 Refills Prov:DAVID JIMENEZ MD 08/01/24 Sucralfate (Carafate Susp) 1 Gram/10 Ml Susp, 10 ML PO QID for 30 Days, #1260 ML 0 Refills before food and bedtime Prov:DAVID JIMENEZ MD 08/01/24 Pantoprazole Sodium (Pantoprazole Sodium) 20 Mg Tablet.dr, 20 MG PO DAILY, #5 TAB Prov:LUIS ALBERTO ALMAGUER MD 06/15/23 Ondansetron (Ondansetron Odt) 4 Mg Tab.rapdis, 4 MG PO Q6HPRN PRN for nausea, #12 TAB 0 Refills Prov:LUIS ALBERTO ALMAGUER MD 06/15/23 Metronidazole (Metronidazole) 500 Mg Tablet, 500 MG PO TID for 5 Days, TAB Prov:LUPIS KEYES NP 12/27/18 Levofloxacin (Levofloxacin) 500 Mg Tablet, 500 MG PO DAILY for 5 Days, TAB Prov:LUPIS KEYES NP 12/27/18 Reported Medications Propranolol HCl (Propranolol HCl) 10 Mg Tablet, 10 MG PO DAILY, TAB 12/24/18 Methimazole (Methimazole) 10 Mg Tablet, 10 MG PO DAILY, TAB 12/24/18 Past Medical History Past Medical History: No Pertinent History Medical History Other: THYROID Past Surgical History: Cholecystectomy, Female( History) History: Not Applicable ROS Dictation CONSTITUTIONAL: No chills, no fever, no weakness, no diaphoresis, no malaise. HEAD/FACE: No signs of trauma. EENT: No eye pain, no blurred vision, no tearing, no double vision, no ear pain, no ear discharge, no nose pain, no nasal congestion, no throat pain, no throat swelling, no mouth pain. RESPIRATORY: No cough, no orthopnea, no SOB, no stridor, no wheezing. CARDIOVASCULAR: No chest pain, no edema, no palpitations, no syncope. GASTROINTESTINAL/ABDOMINAL: abdominal pain, no constipation, no diarrhea, no nausea, no vomiting. GENITOURINARY: No abnormal discharge, no dysuria, no frequent urination, no hematuria. No complaints of pain in the genitals. MUSCULOSKELETAL: No back pain, no gout, no joint pain, no joint swelling, no muscle pain, no muscle stiffness, no neck pain. INTEGUMENTARY: No change in color, no change in hair/nails, no dryness, no lesion, no lumps, no rash. NEUROLOGICAL/PSYCH: No anxiety, not depressed, no emotional problem, no headache, no numbness, no pre-existing deficit, no history of seizures, no tremors, no weakness. HEMATOLOGIC/LYMPHATIC: Not anemic, no history of blood clots, no apparent bleeding, no bruising, glands not swollen. All Systems Negative, Except as Noted. Physical Exam Physical Exam Dictation VITAL SIGNS: Reviewed. GENERAL APPEARANCE: Alert, oriented x3, no acute distress, obese. HEAD AND FACE: Non-traumatic. EYES: PERRL, pink conjunctivas, eyelid no trauma, anterior chamber clear. EARS: Pinnas intact and no signs of trauma or erythema. Ear canals clear and no discharge. TMs no erythema. NOSE: No discharge, no bleeding. OROPHARYNX: Mouth normal, teeth no caries, tongue pink. Pharynx clear, no erythema. Tonsils no exudates, no abscesses noted. Mucous membrane moist. NECK: Supple, non-tender, no thyromegaly, no masses, no JVD, no bruits. BREAST: Deferred. CHEST: No tenderness, no crepitus, no paradoxical movement, no retractions. LUNGS: Clear, well-ventilated, symmetric, no rales, no wheezing, no rhonchi, no stridor, good breath sounds bilaterally. HEART: Regular rate, regular rhythm, no murmur, no gallops. VASCULAR: No peripheral edema. ABDOMEN: Soft, positive bowel sounds, nondistended, no guarding, nontender, no rebound, no masses no hepatomegaly, no splenomegaly, no Andrew's sign, no hernias. RECTAL: Deferred. GENITAL: Deferred. NEUROLOGICAL: Normal speech, gross motor function intact, gross sensory function intact. MUSCULOSKELETAL: Neck nontender, full range of motion, back nontender, full range of motion. EXTREMITIES: Nontender, full range of motion. SKIN: Color pink, dry, no turgor, no rash, no lacerations, no abrasions, no contusions. LYMPHATICS: Deferred. Results Laboratory and Microbiology Lab and Micro Result Laboratory Tests Test 04/06/25 07:52 04/06/25 08:07 Urine Color LIGHT-YELLOW (YELLOW) Urine Appearance CLEAR (CLEAR) Urine pH 6.0 (5.0-8.0) Urine Specific [place] 1.025 (1.001-1.031) Urine Protein NEGATIVE mg/dL (NEGATIVE) Urine Glucose (UA) NEGATIVE mg/dL (NEGATIVE) Urine Ketones NEGATIVE mg/dL (NEGATIVE) Urine Occult Blood NEGATIVE (NEGATIVE) Urine Nitrate NEGATIVE (NEGATIVE) Urine Bilirubin NEGATIVE mg/dL (NEGATIVE) Urine Urobilinogen 0.2 mg/dL (0.2-1.0) Urine Leukocyte Esterase NEGATIVE [place]/uL White Blood Count 14.8 K/uL (4.8-10.8) H Red Blood Count 5.38 MIL/uL (4.00-5.50) Hemoglobin 15.5 g/dL (12.0-16.0) Hematocrit 46.9 % (36-48) Mean Corpuscular Volume 87.2 fL (79-99) Mean Corpuscular Hemoglobin 28.8 pg (27.0-33.0) Mean Corpuscular Hemoglobin Concent 33.0 g/dL (32.0-36.0) Red Cell Distribution Width 13.0 % (11.0-15.5) Platelet Count 216 K/uL (130-400) Mean Platelet Volume 11.0 fL (7.5-10.5) H Immature Granulocyte % (Auto) 0.3 % (0-1) Neutrophils (%) (Auto) 85.5 % (40.0-77.0) H Lymphocytes (%) (Auto) 9.0 % (21.0-51.0) L Monocytes (%) (Auto) 4.9 % (3.0-13.0) Eosinophils (%) (Auto) 0.1 % (0.0-8.0) Basophils (%) (Auto) 0.2 % (0.0-5.0) Neutrophils # (Auto) 12.7 K/uL (1.8-7.7) H Lymphocytes # (Auto) 1.3 K/uL (1.0-4.8) Monocytes # (Auto) 0.7 K/uL (0.1-1.0) Eosinophils # (Auto) 0.01 K/uL (0.00-0.70) Basophils # (Auto) 0.03 K/uL (0.00-0.20) Absolute Immature Granulocyte (auto 0.05 K/uL (0-1) Nucleated Red Blood Cells 0.0 % (0.0-0.19) White Cell Morphology Comment See comments Sodium Level 144 mmol/L (136-145) Potassium Level 3.8 mmol/L (3.5-5.1) Chloride Level 106 mmol/L (101-111) Carbon Dioxide Level 30 mmol/L (21-32) Blood Urea Nitrogen 9 mg/dL (7-18) Creatinine 0.6 mg/dL (0.5-1.0) Glomerular Filtration Rate Calc 103 mL/min (>90) Random Glucose 131 mg/dL (70-105) H Total Calcium 9.5 mg/dL (8.5-10.1) Total Bilirubin 0.8 mg/dL (0.2-1.0) Aspartate Amino Transf (AST/SGOT) 20 U/L (10-37) Alanine Aminotransferase (ALT/SGPT) 35 U/L (12-78) Alkaline Phosphatase 74 U/L (50-136) Troponin I High Sensitivity 4 ng/L (4-50) Total Protein 8.4 g/dL (6.0-8.3) H Albumin 4.3 g/dL (3.5-5.0) Lipase 28 U/L (16-77) Labs Reviewed?: Yes EKG/XRAY/US/CT/MRI EKG Comment 04/06/2025 TIME 8:15 A.M. VENTRICULAR RATE 56 SINUS RHYTHM MO [address] WAVE ELEVATION OR DEPRESSION CT Scan Comment [place] [address] [address] IMAGING REPORT Signed PATIENT: ALPA KENNEDY MR#: [id number] : 1965 SEX: F AGE: 60 LOCATION: [facility] ORDER 0 STATUS: [facility] ER REPORT#: [id number] SERVICE REASON: EPIGASTRIC PAIN ORDERING PHYSICIAN: LUIS TOLEDO MD PROCEDURE: ABD PEL W - CT ABDOMEN/PELVIS W/CONTRAST EXAM: CT Abdomen and Pelvis with IV contrast CLINICAL HISTORY: EPIGASTRIC PAIN TECHNIQUE: Axial computed tomography images of the abdomen and pelvis with intravenous contrast. CONTRAST: with intravenous contrast. COMPARISON: None provided. FINDINGS: LUNG BASES: The lung bases appear clear. No pleural effusions are seen. LIVER: Unremarkable. GALLBLADDER AND BILE DUCTS: Cholecystectomy. No biliary ductal dilatation is evident. PANCREAS: Unremarkable. SPLEEN: Unremarkable. ADRENAL GLANDS: Unremarkable. KIDNEYS, URETERS, AND BLADDER: The kidneys appear within normal limits. There is no hydronephrosis or hydroureter. No urinary calculi are seen. STOMACH AND BOWEL: Unremarkable appearance of the stomach and bowel. No evidence of bowel obstruction. No evidence suggesting enteritis or colitis. APPENDIX: The appendix is hyperemic and thickened, measuring up to 12 mm. There is adjacent stranding noted. This is consistent with acute appendicitis. PERITONEUM: 1.3 cm-sized umbilical hernia defect with herniation of fat. 1.5 cm-sized supra-umbilical hernia defect with herniation of fat. No free fluid. No free air. LYMPH NODES: No lymphadenopathy is evident. REPRODUCTIVE: Pelvic congestion on the left side with prominence of the left ovarian vein. The rest is unremarkable. VASCULATURE: No evidence of abdominal aortic aneurysm. BONES: No aggressive appearing osseous lesion. No acute osseous pathology evident. IMPRESSION: 1. Acute appendicitis. 2. No free air, free fluid or fluid collection. /[place] DICTATED BY: MICAH MORSE MD DATE: 04/06/251311 ELECTRONICALLY SIGNED BY: MICAH MORSE MD DATE: 04/06/251311 [facility] MDM: Differential diagnosis: Appendicitis, abdominal pain, leukocytosis, Rationale: Tests considered and ordered secondary to shared decision making include: Previous outside records reviewed: Old ER visits. Risk of complication and/or morbidity or mortality of patient management: None Medications-Per medication reconciliation Need for hospitalization: Patient does not meet criteria for hospitalization. Need for emergency major/minor surgery: No There are no social concerns with this patient. Prescription drug management Prescriptions will include symptomatic care Patient's prior external medical records from other ER visits were reviewed by me as indicated. Prior testing and results from previous visits were reviewed. Prior tests were taken into account with medical decision making and resource utilization, independent historian/historians were used to obtain complete medical history. I independently interpreted the test that were performed, results were reviewed by me and considered findings on radiology if ordered. Medical management and examination interpretation discussions were had by me with other qualified healthcare professionals as indicated for the patient's care. Dr. Mcleod is surgeon on the case, hospitalist group will be admitting for ongoing management. ED Course Orders Procedure Category Date Status Time Cbc With Differential LAB 04/06/25 Complete 07:53 Comprehensive LAB 04/06/25 Complete Metabolic Panel 07:53 Troponin I High LAB 04/06/25 Complete Sensitivity 07:53 Urinalysis Profile LAB 04/06/25 Complete 07:53 12 Lead Ekg Tracing- EKG 04/06/25 Resulted Technical 07:53 0.9%Nacl 1000ml (Ns PHA 04/06/25 Complete 1000ml) 08:00 Ondansetron 4mg Inj PHA 04/06/25 Complete (Zofran 4mg Inj) 08:00 Lipase LAB 04/06/25 Complete 07:53 Pantoprazole 40mg Inj PHA 04/06/25 Complete (Protonix 40mg Inj 08:00 Pantoprazole 40mg Inj PHA 04/06/25 In Process (Protonix 40mg Inj 08:00 Lidocaine Hcl 2% PHA 04/06/25 Complete Viscous (Lidocaine Hcl 09:30 Mag/Alum/Simeth 30ml PHA 04/06/25 Complete (Maalox Plus 30ml) 09:30 Ct Abdomen/Pelvis CT 04/06/25 Resulted W/Contrast 09:10 Iohexol (Omnipaque) PHA 04/06/25 Complete 10:58 Ketorolac PHA 04/06/25 Complete Tromethamine 15mg/Ml 12:00 Ondansetron 4mg Inj PHA 04/06/25 Complete (Zofran 4mg Inj) 12:30 Morphine 2mg Syg PHA 04/06/25 Complete (Morphine 2mg Syg) 12:30 Zosyn 3.375gm+Ns 50ml PHA 04/06/25 Complete (Zosyn 3.375gm+Ns 12:30 Current Medications Medications (Trade) Dose Ordered Sig/Gregg Route PRN Reason Start Time Stop Time Status Last Admin Dose Admin Al Hydroxide/Mg Hydroxide (MAALox PLUS 30ML) 30 ml ONCE ONCE PO 04/06/25 09:30 04/06/25 09:31 DC 04/06/25 09:32 Iohexol (Omnipaque) 75 ml STK-MED ONCE IV 04/06/25 10:58 04/06/25 10:58 DC Ketorolac Tromethamine (toRADol) 15 mg ONCE ONCE IV 04/06/25 12:00 04/06/25 12:01 DC 04/06/25 11:50 Lidocaine HCl (Lidocaine HCl 2% Viscous) 10 ml ONCE ONCE PO 04/06/25 09:30 04/06/25 09:31 DC 04/06/25 09:32 Morphine Sulfate (morPHINE 2MG SYG) 2 mg ONCE ONCE IVP 04/06/25 12:30 04/06/25 12:34 DC Ondansetron HCl (zoFRAN 4MG INJ) 4 mg ONCE ONCE IVP 04/06/25 08:00 04/06/25 08:01 DC 04/06/25 08:08 Ondansetron HCl (zoFRAN 4MG INJ) 4 mg ONCE ONCE IVP 04/06/25 12:30 04/06/25 12:34 DC Pantoprazole Sodium (PROTonix 40MG INJ) 80 mg ONCE ONCE IVP 04/06/25 08:00 04/06/25 08:01 DC 04/06/25 08:08 Pantoprazole Sodium 80 mg/ Sodium Chloride 100 ml @ 10 mls/hr Q10H IV 04/06/25 08:00 05/06/25 07:59 Piperacillin Sod/ Tazobactam Sod (Zosyn 3.375gm+NS 50ml) 3.375 gm ONCE ONCE IV 04/06/25 12:30 04/06/25 12:41 DC Sodium Chloride 1,000 ml @ 0 mls/hr ONCE ONCE IV 04/06/25 08:00 04/06/25 08:01 DC 04/06/25 08:08 Vital Signs Date Time Temp Pulse Resp B/P (MAP) Pulse Ox O2 Delivery O2 Flow Rate FiO2 04/06/25 08:43 98.6 57 18 145/61 100 Room Air* 0 21 04/06/25 07:46 97.9 68 17 140/63 98 Room Air 0 DX & DISP Disposition: Inpatient Decision to Admit Time: 12:49 Departure Impression: Primary Impression: Appendicitis Condition: Stable Referrals: RICCARDO MACHUCA MD (PCP) LUIS TOLEDO MD Apr 06, 2025 08:10
[2025-04-06 08:12] LABS: IMMATURE GRANULOCYTE ABSOLUTE 0.05 K/uL (0-1); NUCLEATED RED BLOOD CELLS 0.0 % (0.0-0.19); PLATELET COUNT (AUTO) 216 K/uL (130-400); RED BLOOD CELL COUNT(AUTO) 5.38 MIL/uL (4.00-5.50); RED CELL DISTRIBUTION WIDTH 13.0 % (11.0-15.5); WHITE BLOOD COUNT (AUTO) 14.8 K/uL (4.8-10.8)
[2025-04-06 08:16] LABS: APPEARANCE,URINE CLEAR (CLEAR); GLUCOSE, URINE (UA) NEGATIVE (NEGATIVE); LEUKOCYTE ESTERASE ,URINE NEGATIVE Leu/uL (NEGATIVE); NITRATE,URINE NEGATIVE (NEGATIVE); OCCULT BLOOD,URINE NEGATIVE (NEGATIVE)
[2025-04-06 08:20] LABS: CREATININE 0.6 mg/dL (0.5-1.0); GLOMERULAR FILTR. RATE CALC 103.0 mL/min (>90); GLUCOSE,RANDOM 131.0 mg/dL (70-105); SODIUM SERUM 144.0 mmol/L (136-145); UREA NITROGEN, BLOOD 9.0 mg/dL (7-18)
--- NOTE | 2025-04-06 08:22 | EKG ---
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
[2025-04-06 08:24] LABS: ASPARTATE AMINOTRANSFERASE 20.0 U/L (10-37); TOTAL PROTEIN, SERUM 8.4 g/dL (6.0-8.3)
[2025-04-06 08:26] LABS: ADD UA MICROSCOPIC NO
[2025-04-06] MEDS: MAG/ALUM/SIMETH 30 ML UDCUP PO ONE (09:32)
[2025-04-06] MEDS: LIDOCAINE HCL 2% VISCOUS 15 ML UDCUP PO ONE (09:32)
[2025-04-06] MEDS ORDERED: IOHEXOL-350 75 ML VIAL IV ONE (10:58)
--- NOTE | 2025-04-06 12:13 | HMCIMG ---
EXAM: CT Abdomen and Pelvis with IV contrast CLINICAL HISTORY: EPIGASTRIC PAIN TECHNIQUE: Axial computed tomography images of the abdomen and pelvis with intravenous contrast. CONTRAST: with intravenous contrast. COMPARISON: None provided. FINDINGS: LUNG BASES: The lung bases appear clear. No pleural effusions are seen. LIVER: Unremarkable. GALLBLADDER AND BILE DUCTS: Cholecystectomy. No biliary ductal dilatation is evident. PANCREAS: Unremarkable. SPLEEN: Unremarkable. ADRENAL GLANDS: Unremarkable. KIDNEYS, URETERS, AND BLADDER: The kidneys appear within normal limits. There is no hydronephrosis or hydroureter. No urinary calculi are seen. STOMACH AND BOWEL: Unremarkable appearance of the stomach and bowel. No evidence of bowel obstruction. No evidence suggesting enteritis or colitis. APPENDIX: The appendix is hyperemic and thickened, measuring up to 12 mm. There is adjacent stranding noted. This is consistent with acute appendicitis. PERITONEUM: 1.3 cm-sized umbilical hernia defect with herniation of fat. 1.5 cm-sized supra-umbilical hernia defect with herniation of fat. No free fluid. No free air. LYMPH NODES: No lymphadenopathy is evident. REPRODUCTIVE: Pelvic congestion on the left side with prominence of the left ovarian vein. The rest is unremarkable. VASCULATURE: No evidence of abdominal aortic aneurysm. BONES: No aggressive appearing osseous lesion. No acute osseous pathology evident. IMPRESSION: 1. Acute appendicitis. 2. No free air, free fluid or fluid collection. /[place]
--- NOTE | 2025-04-06 12:45 | NUR ---
Assumed patients care
--- NOTE | 2025-04-06 12:52 | NUR ---
Patient stated she does not take any home medications.
[2025-04-06] MEDS: ZOSYN 3.375GM +NS 50ML IV ONE (12:54)
--- NOTE | 2025-04-06 13:26 | NUR ---
Discussed plan of care , pain management and pending consults.
[2025-04-06] MEDS ORDERED: 0.9%NACL 1000ML 1,000 ML IV SCH (13:30)
--- NOTE | 2025-04-06 13:40 | HP ---
[facility] HISTORY [facility] PHYSICAL Date of Service: Apr 06, 2025 Time of Service: 13:15 HISTORY OF PRESENT ILLNESS: Patient is a 60-year-old female with no significant past medical history who presented to the emergency department with a 12 hour history of abdominal pain. Initially she noted dull pain around her epigastric area which over the past 6- 8 hours has migrated to the right lower quadrant and become sharper and more constant. The pain was sudden in onset, intermittent in frequency and rated as an 8/10. It radiated down to her pelvic area and is worsened by movement, coughing, and walking. She reports associated nausea, vomiting and loss of appetite. Denies any fever, chills, diarrhea or urinary symptoms. She had a normal bowel movement yesterday and has not had one today. No recent travel or sick contacts. She reports a history of similar pain in the past however not as bad as this time. Denies any cough, shortness of breath, chest pain or palpitations. For this pain she decided to come to the emergency room for evaluation. In the ED, vital signs: temperature of 98.6, pulse 69, blood pressure 145/79, oxygen 99% on room air. Labs showed a WBC 14.8, neutrophils 85.8, chemistry was unremarkable and urinalysis was unremarkable as well. CT abdomen and pelvis without contrast showed acute appendicitis, no free air, fluid collection or free fluid seen. Consult was placed for General surgery, pending their recommendations. Patient was given a 1L bolus of normal saline and normal saline at 100 mL/hour for adequate hydration. Morphine2 mg IV q.4 hours and hydromorphone ordered for adequate pain management. Blood cultures, ESR and procalcitonin were also ordered. Patient was placed on NPO pending General surgery recommendations. Patient will be admitted under the hospitalist for further evaluation and management. REVIEW OF SYSTEMS CONSTITUTIONAL: Denies fevers, chills, or night sweats. No unintentional weight loss reported. NEUROLOGICAL: Denies headache, amaurosis fugax, motor weakness, sensory deficit, vertigo/spinning sensation, gait abnormalities, or tremors. ENT: No hearing loss, otalgia, otorrhea, rhinitis, rhinorrhea, hoarseness, or sore throat. CARDIOVASCULAR: Denies any exertional angina, dyspnea on exertion, orthopnea, paroxysmal nocturnal dyspnea, PULMONARY: Denies any shortness of breath, cough, phlegm/sputum, hemoptysis, pleuritic chest pain. SLEEP: Denies morning headaches, daytime somnolence or napping. GASTROINTESTINAL: Nausea, vomiting, Abdominal pain, diarrhea, constipation,. Denies coffee-ground emesis, hematemesis, hematochezia, or melanotic stools. GENITOURINARY: Denies frequency, urgency, nocturia, hematuria or incontinence ENDOCRINOLOGIC: Denies polyuria, polydipsia, polyphagia or heat/cold intolerances. HEMATOLOGIC: Denies thrombophilia/previous clots, or coagulopathy/bleeding disorders. ONCOLOGIC: Denies personal history of malignancy. DERMATOLOGIC: Denies rashes or pruritus. PSYCHIATRIC: Denies any suicidal or homicidal ideation. Denies hallucinations. PAST MEDICAL HISTORY: None PAST SURGICAL HISTORY: x2, Cholecystectomy PAST SOCIAL HISTORY: Drinks socially, Denies smoking or use of illegal drugs FAMILY HISTORY Mother: Hypertension, Diabetes mellitus, Hypothyroidism Father: Coronary Artery Disease, Diabetes mellitus Coded Allergies: No Known Allergies (Verified Allergy, Unknown, 12/24/18) PHYSICAL EXAM GENERAL APPEARANCE: The patient is awake, alert, and oriented, in mild di stress. NEUROLOGICAL: Cranial nerves II-XII grossly intact. Motor is 5/5 in bilateral upper and lower extremities proximal to distal. No sensory deficits. HEENT: Face is symmetric. Pupils are equal and reactive. Extraocular movements are intact. NECK: Supple. No JVD. No thyromegaly. No submental, submandibular, pre- /postauricular, occipital or supraclavicular lymphadenopathy. CHEST: Normal chest expansion. No Telemetry. LUNGS: Absence of any rales, rhonchi or any wheezing. CARDIOVASCULAR: Regular. S1 and S2 normal. No appreciable rubs, murmurs or gallops. ABDOMEN: Tenderness, guarding RLQ, nondistended. There is no rebound, voluntary guarding, or rigidity. : Deferred. No Leone. EXTREMITIES: Non-edematous and not cyanotic. No clubbing. Good capillary refill. SKIN: No skin breakdown. Vital Sign (Last 24 Hours) 04/06/25 04/06/25 08:43 11:48 Temp 98.6 Pulse 69 Resp 20 B/P (MAP) 145/79 Pulse Ox 99 O2 Delivery Room Air* O2 Flow Rate 0 FiO2 21 LABS: Laboratory: Test 04/06/25 08:07 04/06/25 07:52 Range/Units White Blood Count 14.8 H 4.8-10.8 K/uL Red Blood Count 5.38 4.00-5.50 MIL/uL Hemoglobin 15.5 12.0-16.0 g/dL Hematocrit 46.9 36-48 % Mean Corpuscular Volume 87.2 79-99 fL Mean Corpuscular Hemoglobin 28.8 27.0-33.0 pg Mean Corpuscular Hemoglobin Concent 33.0 32.0-36.0 g/dL Red Cell Distribution Width 13.0 11.0-15.5 % Platelet Count 216 130-400 K/uL Mean Platelet Volume 11.0 H 7.5-10.5 fL Immature Granulocyte % (Auto) 0.3 0-1 % Neutrophils (%) (Auto) 85.5 H 40.0-77.0 % Lymphocytes (%) (Auto) 9.0 L 21.0-51.0 % Monocytes (%) (Auto) 4.9 3.0-13.0 % Eosinophils (%) (Auto) 0.1 0.0-8.0 % Basophils (%) (Auto) 0.2 0.0-5.0 % Neutrophils # (Auto) 12.7 H 1.8-7.7 K/uL Lymphocytes # (Auto) 1.3 1.0-4.8 K/uL Monocytes # (Auto) 0.7 0.1-1.0 K/uL Eosinophils # (Auto) 0.01 0.00-0.70 K/uL Basophils # (Auto) 0.03 0.00-0.20 K/uL Absolute Immature Granulocyte (auto 0.05 0-1 K/uL Nucleated Red Blood Cells 0.0 0.0-0.19 % White Cell Morphology Comment See comments Sodium Level 144 136-145 mmol/L Potassium Level 3.8 3.5-5.1 mmol/L Chloride Level 106 101-111 mmol/L Carbon Dioxide Level 30 21-32 mmol/L Blood Urea Nitrogen 9 7-18 mg/dL Creatinine 0.6 0.5-1.0 mg/dL Glomerular Filtration Rate Calc 103 >90 mL/min Random Glucose 131 H 70-105 mg/dL Total Calcium 9.5 8.5-10.1 mg/dL Total Bilirubin 0.8 0.2-1.0 mg/dL Aspartate Amino Transf (AST/SGOT) 20 10-37 U/L Alanine Aminotransferase (ALT/SGPT) 35 12-78 U/L Alkaline Phosphatase 74 50-136 U/L Troponin I High Sensitivity 4 4-50 ng/L Total Protein 8.4 H 6.0-8.3 g/dL Albumin 4.3 3.5-5.0 g/dL Lipase 28 16-77 U/L Urine Color LIGHT-YELLOW YELLOW Urine Appearance CLEAR CLEAR Urine pH 6.0 5.0-8.0 Urine Specific [place] 1.025 1.001-1.031 Urine Protein NEGATIVE NEGATIVE mg/dL Urine Glucose (UA) NEGATIVE NEGATIVE mg/dL Urine Ketones NEGATIVE NEGATIVE mg/dL Urine Occult Blood NEGATIVE NEGATIVE Urine Nitrate NEGATIVE NEGATIVE Urine Bilirubin NEGATIVE NEGATIVE mg/dL Urine Urobilinogen 0.2 0.2-1.0 mg/dL Urine Leukocyte Esterase NEGATIVE NEGATIVE Nawaf/uL Current Medications Medications (Trade) Dose Ordered Sig/Gregg Route PRN Reason Start Time Stop Time Status Last Admin Dose Admin Acetaminophen (TYLenol 325MG TAB) 650 mg Q4H PRN PO MILD PAIN (1-3) 04/06/25 13:30 05/06/25 13:29 Diphenhydramine HCl (BENAdryl CAP) 25 mg Q4H PRN PO MILD ITCHING/RASH 04/06/25 13:30 05/06/25 13:29 Hydromorphone HCl (DiLAUDid 1MG INJ) 0.5 mg Q4H PRN IV SEVERE PAIN (7-10) 04/06/25 13:30 04/11/25 13:29 UNV Morphine Sulfate (morPHINE 2MG SYG) 2 mg Q4H PRN IV MODERATE PAIN (4-6) 04/06/25 13:30 04/13/25 13:29 Ondansetron HCl (zoFRAN 4MG INJ) 4 mg Q6H PRN IV NAUSEA/VOMITING 04/06/25 13:30 05/06/25 13:29 Pantoprazole Sodium 80 mg/ Sodium Chloride 100 ml @ 10 mls/hr Q10H IV 04/06/25 08:00 04/06/25 13:30 DC Pantoprazole Sodium 80 mg/ Sodium Chloride 100 ml @ 0 mls/hr DAILY IV 04/07/25 09:00 05/07/25 08:59 UNV Piperacillin Sod/ Tazobactam Sod 50 ml @ 12.5 mls/hr ZOSY8 IV 04/06/25 21:00 04/16/25 20:59 UNV Sodium Chloride 1,000 ml @ 100 mls/hr Q10H IV 04/06/25 13:30 05/06/25 13:29 Sodium Chloride 1,000 ml @ 100 mls/hr Q10H IV 04/06/25 13:30 05/06/25 13:29 UNV DIAGNOSTICS / RADIOLOGY: PATIENT: ALPA KENNEDY MR#: [id number] : 1965 SEX: F AGE: 60 LOCATION: [facility] ORDER 0 STATUS: REG ER REPORT#: [id number] SERVICE 9 REASON: EPIGASTRIC PAIN ORDERING PHYSICIAN: LUIS TOLEDO MD PROCEDURE: ABD PEL W - CT ABDOMEN/PELVIS W/CONTRAST ADDENDUM REPORT ADDENDUM: Results were shared by telephone at 13:18 pm on 04-06-25 and acknowledged by Carlos PATEL Ms Collier Monica /[facility] EXAM: CT Abdomen and Pelvis with IV contrast CLINICAL HISTORY: EPIGASTRIC PAIN TECHNIQUE: Axial computed tomography images of the abdomen and pelvis with intravenous contrast. CONTRAST: with intravenous contrast. COMPARISON: None provided. FINDINGS: LUNG BASES: The lung bases appear clear. No pleural effusions are seen. LIVER: Unremarkable. GALLBLADDER AND BILE DUCTS: Cholecystectomy. No biliary ductal dilatation is evident. PANCREAS: Unremarkable. SPLEEN: Unremarkable. ADRENAL GLANDS: Unremarkable. KIDNEYS, URETERS, AND BLADDER: The kidneys appear within normal limits. There is no hydronephrosis or hydroureter. No urinary calculi are seen. STOMACH AND BOWEL: Unremarkable appearance of the stomach and bowel. No evidence of bowel obstruction. No evidence suggesting enteritis or colitis. APPENDIX: The appendix is hyperemic and thickened, measuring up to 12 mm. There is adjacent stranding noted. This is consistent with acute appendicitis. PERITONEUM: 1.3 cm-sized umbilical hernia defect with herniation of fat. 1.5 cm-sized supra-umbilical hernia defect with herniation of fat. No free fluid. No free air. LYMPH NODES: No lymphadenopathy is evident. REPRODUCTIVE: Pelvic congestion on the left side with prominence of the left ovarian vein. The rest is unremarkable. VASCULATURE: No evidence of abdominal aortic aneurysm. BONES: No aggressive appearing osseous lesion. No acute osseous pathology evident. IMPRESSION: 1. Acute appendicitis. 2. No free air, free fluid or fluid collection. /[facility] DICTATED BY: MICAH MORSE MD DATE: 04/06/25 1333 ELECTRONICALLY SIGNED BY: DATE: EXAM: CT Abdomen and Pelvis with IV contrast CLINICAL HISTORY: EPIGASTRIC PAIN TECHNIQUE: Axial computed tomography images of the abdomen and pelvis with intravenous contrast. CONTRAST: with intravenous contrast. COMPARISON: None provided. FINDINGS: LUNG BASES: The lung bases appear clear. No pleural effusions are seen. LIVER: Unremarkable. GALLBLADDER AND BILE DUCTS: Cholecystectomy. No biliary ductal dilatation is evident. PANCREAS: Unremarkable. SPLEEN: Unremarkable. ADRENAL GLANDS: Unremarkable. KIDNEYS, URETERS, AND BLADDER: The kidneys appear within normal limits. There is no hydronephrosis or hydroureter. No urinary calculi are seen. STOMACH AND BOWEL: Unremarkable appearance of the stomach and bowel. No evidence of bowel obstruction. No evidence suggesting enteritis or colitis. APPENDIX: The appendix is hyperemic and thickened, measuring up to 12 mm. There is adjacent stranding noted. This is consistent with acute appendicitis. PERITONEUM: 1.3 cm-sized umbilical hernia defect with herniation of fat. 1.5 cm-sized supra-umbilical hernia defect with herniation of fat. No free fluid. No free air. LYMPH NODES: No lymphadenopathy is evident. REPRODUCTIVE: Pelvic congestion on the left side with prominence of the left ovarian vein. The rest is unremarkable. VASCULATURE: No evidence of abdominal aortic aneurysm. BONES: No aggressive appearing osseous lesion. No acute osseous pathology evident. IMPRESSION: 1. Acute appendicitis. 2. No free air, free fluid or fluid collection. /[facility] DICTATED BY: MICAH MORSE MD DATE: 04/06/25 131 ELECTRONICALLY SIGNED BY: MICAH MORSE MD DATE: 04/06/251311 ASSESSMENT: Acute Appendicitis as per CT on 04/06/25 Elevated WBC POA Hyperglycemia PLAN: We will admit to medical/surgical floor for further evaluation and management Acute Appendicitis as per CT on 04/06/25 *Surgery has been consulted for evaluation of suspected acute appendicitis. Pending their recommendations. *Patient to remain NPO pending surgical evaluation. *0.9% normal saline bolus ordered *Continue with normal saline at 100 mL/hour for adequate hydration *Morphine2 mg IV q.4 hours and hydromorphone ordered for pain management *Zosyn 3.375 g q6h IV ordered. *Zofran 4 mg IV p.r.n. ordered for nausea and vomiting Elevated WBC POA *Continue with Zofran 3.375 g q.6 hours IV as ordered *Blood cultures ordered. Pending results *Vital signs q.4 hours ordered Hyperglycemia POA *HbA1c ordered *Hyperglycemia and hypoglycemia protocols in place G I prophylaxis:Protonix 40mg IV BID DVT prophylaxis:Lovenox 40mg SC BID Code status: Full ATTESTATION BY PHYSICIAN I have seen and examined the patient. I reviewed the documentation, medical decision making, and treatment plan as noted by the resident provider above. I agree with the findings and plan of care. Maksim Peraza MD OBI,COMPA Goodman MD Apr 06, 2025 13:40
[2025-04-06] MEDS: 0.9%NACL 1000ML 1,000 ML IV SCH (13:56)
--- NOTE | 2025-04-06 14:00 | NUR ---
Rounded on patients. No signs of respiratory distress noted. Patient has no complaints at this time.
--- NOTE | 2025-04-06 14:07 | NUR ---
DCP: HOME Sw met with pt who states she lives in a 2 story town home with her 2 sons 31,and 35. Pt works at [employer] and remains active, drives and independent. Pt states she is able to complete her ADLS and IADLS without assistance, uses no DME, HH or HD services at this time. Pt gets her meds at [facility] and PCP is Shavonne Campuzano. Discussed dcp. Pt denies dc needs, or need for SNF. Pt plans to return home at pa. Addendum: 04/06/25 at 1411 by NYDIA MORROW Amended: Links added.
[2025-04-06] MEDS ORDERED: DEXTROSE 50%-WATER 50 ML DISP.SYRIN IV PRN (14:30)
[2025-04-06] MEDS ORDERED: GLUCAGON 1MG KIT 1 MG ML IM PRN (14:30)
--- NOTE | 2025-04-06 15:00 | NUR ---
Iv fluids infusing via IV pump. PIV patent; no signs of erythema or edema in surrounding areas. No signs of respiratory distress noted. Discussed plan of care and pain management. Patient verbalized understanding.
--- NOTE | 2025-04-06 15:58 | NUR ---
Called Dr. Mcleod (surgeon) notify of new consult. We discussed ct abdomen findings. Pending new orders.
[2025-04-06] MEDS: ZOSYN 3.375GM+NS 50ML 50 ML IV SCH (20:39)
[2025-04-06 23:00] VITALS: BP 143/71; PULSE 69; RESP 16; TEMP 98.2
[2025-04-06] MEDS ORDERED: SUMA50TA17 PO (23:19)
[2025-04-07 04:00] VITALS: BP 122/60; PULSE 64; RESP 17; TEMP 98.4
[2025-04-07 07:07] LABS: NUCLEATED RED BLOOD CELLS 0.0 % (0.0-0.19); PLATELET COUNT (AUTO) 171.0 K/uL (130-400); RED BLOOD CELL COUNT(AUTO) 4.45 MIL/uL (4.00-5.50); RED CELL DISTRIBUTION WIDTH 13.0 % (11.0-15.5); WHITE BLOOD COUNT (AUTO) 13.7 K/uL (4.8-10.8)
[2025-04-07 07:19] LABS: CREATININE 0.7 mg/dL (0.5-1.0); GLOMERULAR FILTR. RATE CALC 100.0 mL/min (>90); GLUCOSE,RANDOM 104.0 mg/dL (70-105); SODIUM SERUM 140.0 mmol/L (136-145); UREA NITROGEN, BLOOD 6.0 mg/dL (7-18)
[2025-04-07 08:00] VITALS: BP 110/58; PULSE 67; RESP 18; TEMP 98.2; O2SAT 97
--- NOTE | 2025-04-07 10:30 | PN ---
[facility] PROGRESS NOTE Date of Service: Apr 07, 2025 Time of Service: 10:12 SUBJECTIVE: Patient is a 60-year-old female with no significant past medical history who presented to the emergency department with a 12 hour history of abdominal pain. Initially she noted dull pain around her epigastric area which over the past 6- 8 hours has migrated to the right lower quadrant and become sharper and more constant. The pain was sudden in onset, intermittent in frequency and rated as an 8/10. It radiated down to her pelvic area and is worsened by movement, coughing, and walking. She reported associated nausea, vomiting and loss of appetite. She denied any fever, chills, diarrhea or urinary symptoms. No recent travel or sick contacts. She reported a history of similar pain in the past however not as bad as this time. She denied any cough, shortness of breath, chest pain or palpitations. For this pain she decided to come to the emergency room for evaluation. In the ED, vital signs: temperature was 98.6, pulse 69, blood pressure 145/79, oxygen 99% on room air. Labs showed a WBC 14.8, neutrophils 85.8, chemistry was unremarkable and urinalysis was unremarkable as well. CT abdomen and pelvis without contrast showed acute appendicitis, no free air, fluid collection or free fluid seen. Patient was given a 1L bolus of normal saline and normal saline at 100 mL/hour for adequate hydration. She also recieved Morphine 2 mg IV q.4 hours and hydromorphone for adequate pain management. Blood cultures, ESR and procalcitonin were also ordered. Patient has been placed on NPO pending General surgery recommendations. Patient has been admitted under the hospitalist for further evaluation and management. 04/07/25 Patient was evaluated at the bedside. She is hemodynamically stable. She does not complain of any nausea and vomiting. She complains of mild abdominal discomfort without tenderness and guarding. Her bowel and bladder activities are normal. Her WBCs gradually trending down from 14.8 to 13.7. Patient is in NPO and we are currently awaiting General surgery recommendations. REVIEW OF SYSTEMS CONSTITUTIONAL: Denies fevers, chills, or night sweats. No unintentional weight loss reported. NEUROLOGICAL: Denies headache, motor weakness, sensory deficit. CARDIOVASCULAR: Denies any exertional angina, dyspnea on exertion, orthopnea. PULMONARY: Denies any shortness of breath, cough, phlegm/sputum, hemoptysis, pleuritic chest pain. GASTROINTESTINAL: Complains of mild abdominal discomfort. Nausea, vomiting, gradually subsided. Denies diarrhea, constipation. GENITOURINARY: Denies frequency, urgency, nocturia, hematuria or incontinence PHYSICAL EXAM GENERAL APPEARANCE: The patient is awake, alert, and oriented, in mild distress. NEUROLOGICAL: Motor is 5/5 in bilateral upper and lower extremities proximal to distal. No sensory deficits. CHEST: Normal chest expansion. No Telemetry. LUNGS: Absence of any rales, rhonchi or any wheezing. CARDIOVASCULAR: Regular. S1 and S2 normal. No appreciable rubs, murmurs or gallops. ABDOMEN: Mild abdominal pain. There is no rebound, voluntary guarding, or rigidity. : Deferred. No Leone. EXTREMITIES: Non-edematous and not cyanotic. Vital Signs (last 8hr) Date Time Temp Pulse Resp B/P (MAP) Pulse Ox O2 Delivery O2 Flow Rate FiO2 04/07/25 08:00 98.2 67 18 110/58 97 Room Air 04/07/25 04:00 98.4 64 17 122/60 97 Room Air 21 LABS: Laboratory: Test 04/07/25 07:07 04/07/25 07:03 04/07/25 05:10 04/06/25 14:12 Range/Units Erythrocyte Sedimentation Rate 19 0-30 MM/HR Procalcitonin < 0.05 L 0.05-0.5 ng/mL Thyroid Stimulating Hormone (TSH) 0.42 # 0.36-3.74 uIU/mL White Blood Count 13.7 H 4.8-10.8 K/uL Red Blood Count 4.45 4.00-5.50 MIL/uL Hemoglobin 12.8 12.0-16.0 g/dL Hematocrit 37.9 36-48 % Mean Corpuscular Volume 85.2 79-99 fL Mean Corpuscular Hemoglobin 28.8 27.0-33.0 pg Mean Corpuscular Hemoglobin Concent 33.8 32.0-36.0 g/dL Red Cell Distribution Width 13.0 11.0-15.5 % Platelet Count 171 130-400 K/uL Mean Platelet Volume 10.8 H 7.5-10.5 fL Nucleated Red Blood Cells 0.0 0.0-0.19 % Sodium Level 140 136-145 mmol/L Potassium Level 3.7 3.5-5.1 mmol/L Chloride Level 108 101-111 mmol/L Carbon Dioxide Level 28 21-32 mmol/L Blood Urea Nitrogen 6 L 7-18 mg/dL Creatinine 0.7 0.5-1.0 mg/dL Glomerular Filtration Rate Calc 100 >90 mL/min Random Glucose 104 70-105 mg/dL Total Calcium 8.4 L 8.5-10.1 mg/dL Whole Blood Glucose 105 70-110 MG/DL Hemoglobin A1c 5.1 4.0-6.0 % Estimated Average Glucose (eAG) 100 70-126 mg/dL Test 04/06/25 08:07 04/06/25 07:52 Range/Units Immature Granulocyte % (Auto) 0.3 0-1 % Neutrophils (%) (Auto) 85.5 H 40.0-77.0 % Lymphocytes (%) (Auto) 9.0 L 21.0-51.0 % Monocytes (%) (Auto) 4.9 3.0-13.0 % Eosinophils (%) (Auto) 0.1 0.0-8.0 % Basophils (%) (Auto) 0.2 0.0-5.0 % Neutrophils # (Auto) 12.7 H 1.8-7.7 K/uL Lymphocytes # (Auto) 1.3 1.0-4.8 K/uL Monocytes # (Auto) 0.7 0.1-1.0 K/uL Eosinophils # (Auto) 0.01 0.00-0.70 K/uL Basophils # (Auto) 0.03 0.00-0.20 K/uL Absolute Immature Granulocyte (auto 0.05 0-1 K/uL White Cell Morphology Comment See comments Total Bilirubin 0.8 0.2-1.0 mg/dL Aspartate Amino Transf (AST/SGOT) 20 10-37 U/L Alanine Aminotransferase (ALT/SGPT) 35 12-78 U/L Alkaline Phosphatase 74 50-136 U/L Troponin I High Sensitivity 4 4-50 ng/L Total Protein 8.4 H 6.0-8.3 g/dL Albumin 4.3 3.5-5.0 g/dL Lipase 28 16-77 U/L Urine Color LIGHT-YELLOW YELLOW Urine Appearance CLEAR CLEAR Urine pH 6.0 5.0-8.0 Urine Specific [place] 1.025 1.001-1.031 Urine Protein NEGATIVE NEGATIVE mg/dL Urine Glucose (UA) NEGATIVE NEGATIVE mg/dL Urine Ketones NEGATIVE NEGATIVE mg/dL Urine Occult Blood NEGATIVE NEGATIVE Urine Nitrate NEGATIVE NEGATIVE Urine Bilirubin NEGATIVE NEGATIVE mg/dL Urine Urobilinogen 0.2 0.2-1.0 mg/dL Urine Leukocyte Esterase NEGATIVE NEGATIVE Nawaf/uL Current Medications Medications (Trade) Dose Ordered Sig/Gregg Route PRN Reason Start Time Stop Time Status Last Admin Dose Admin Acetaminophen (TYLenol 325MG TAB) 650 mg Q4H PRN PO MILD PAIN (1-3) 04/06/25 13:30 05/06/25 13:29 Dextrose (D50w) 50 ml AD PRN IV HYPOGLYCEMIA PROTOCOL 04/06/25 14:30 05/06/25 14:29 Diphenhydramine HCl (BENAdryl CAP) 25 mg Q4H PRN PO MILD ITCHING/RASH 04/06/25 13:30 05/06/25 13:29 Glucagon (Glucagon 1mg Kit) 1 mg AD PRN IM HYPOGLYCEMIA PROTOCOL 04/06/25 14:30 05/06/25 14:29 Heparin Sodium (Porcine) (HEParin 5,000 UNIT VIAL) 5,000 unit Q12H SQ 04/07/25 09:00 05/07/25 08:59 Hydromorphone HCl (DiLAUDid 0.5MG INJ) 0.5 mg Q4H PRN IV SEVERE PAIN (7-10) 04/06/25 14:00 04/11/25 13:29 Hydromorphone HCl (DiLAUDid 1MG INJ) 0.5 mg Q4H PRN IV SEVERE PAIN (7-10) 04/06/25 13:30 04/06/25 13:35 DC Morphine Sulfate (morPHINE 2MG SYG) 2 mg Q4H PRN IV MODERATE PAIN (4-6) 04/06/25 13:30 04/13/25 13:29 04/06/25 23:28 2 MG Ondansetron HCl (zoFRAN 4MG INJ) 4 mg Q6H PRN IV NAUSEA/VOMITING 04/06/25 13:30 05/06/25 13:29 Pantoprazole Sodium (PROTonix 40MG INJ) 40 mg BID IVP 04/06/25 21:00 05/06/25 20:59 04/07/25 08:41 40 MG Pantoprazole Sodium 80 mg/ Sodium Chloride 100 ml @ 10 mls/hr DAILY IV 04/07/25 09:00 04/06/25 13:37 DC Pantoprazole Sodium 80 mg/ Sodium Chloride 100 ml @ 10 mls/hr Q10H IV 04/06/25 08:00 04/06/25 13:30 DC Piperacillin Sod/ Tazobactam Sod 50 ml @ 12.5 mls/hr ZOSY8 IV 04/06/25 21:00 04/16/25 20:59 04/07/25 05:03 12.5 MLS/HR Sodium Chloride 1,000 ml @ 100 mls/hr Q10H IV 04/06/25 13:30 04/06/25 13:35 DC Sodium Chloride 1,000 ml @ 100 mls/hr Q10H IV 04/06/25 13:30 05/06/25 13:29 04/06/25 13:56 100 MLS/HR DIAGNOSTICS / RADIOLOGY: [place] [address] IMAGING REPORT Addendum PATIENT: ALPA KENNEDY MR#: [id number] : 1965 SEX: F AGE: 60 LOCATION: [facility] ORDER 0 STATUS: REG ER REPORT#: [id number] SERVICE 9 REASON: EPIGASTRIC PAIN ORDERING PHYSICIAN: LUIS TOLEDO MD PROCEDURE: ABD PEL W - CT ABDOMEN/PELVIS W/CONTRAST ADDENDUM REPORT ADDENDUM: Results were shared by telephone at 13:18 pm on 04-06-25 and acknowledged by Carlos Anderson /[place] EXAM: CT Abdomen and Pelvis with IV contrast CLINICAL HISTORY: EPIGASTRIC PAIN TECHNIQUE: Axial computed tomography images of the abdomen and pelvis with intravenous contrast. CONTRAST: with intravenous contrast. COMPARISON: None provided. FINDINGS: LUNG BASES: The lung bases appear clear. No pleural effusions are seen. LIVER: Unremarkable. GALLBLADDER AND BILE DUCTS: Cholecystectomy. No biliary ductal dilatation is evident. PANCREAS: Unremarkable. SPLEEN: Unremarkable. ADRENAL GLANDS: Unremarkable. KIDNEYS, URETERS, AND BLADDER: The kidneys appear within normal limits. There is no hydronephrosis or hydroureter. No urinary calculi are seen. STOMACH AND BOWEL: Unremarkable appearance of the stomach and bowel. No evidence of bowel obstruction. No evidence suggesting enteritis or colitis. APPENDIX: The appendix is hyperemic and thickened, measuring up to 12 mm. There is adjacent stranding noted. This is consistent with acute appendicitis. PERITONEUM: 1.3 cm-sized umbilical hernia defect with herniation of fat. 1.5 cm-sized supra-umbilical hernia defect with herniation of fat. No free fluid. No free air. LYMPH NODES: No lymphadenopathy is evident. REPRODUCTIVE: Pelvic congestion on the left side with prominence of the left ovarian vein. The rest is unremarkable. VASCULATURE: No evidence of abdominal aortic aneurysm. BONES: No aggressive appearing osseous lesion. No acute osseous pathology evident. IMPRESSION: 1. Acute appendicitis. 2. No free air, free fluid or fluid collection. /[place] DICTATED BY: MICAH MORSE MD DATE: 04/06/25 1333 ELECTRONICALLY SIGNED BY: DATE: EXAM: CT Abdomen and Pelvis with IV contrast CLINICAL HISTORY: EPIGASTRIC PAIN TECHNIQUE: Axial computed tomography images of the abdomen and pelvis with intravenous contrast. CONTRAST: with intravenous contrast. COMPARISON: None provided. FINDINGS: LUNG BASES: The lung bases appear clear. No pleural effusions are seen. LIVER: Unremarkable. GALLBLADDER AND BILE DUCTS: Cholecystectomy. No biliary ductal dilatation is evident. PANCREAS: Unremarkable. SPLEEN: Unremarkable. ADRENAL GLANDS: Unremarkable. KIDNEYS, URETERS, AND BLADDER: The kidneys appear within normal limits. There is no hydronephrosis or hydroureter. No urinary calculi are seen. STOMACH AND BOWEL: Unremarkable appearance of the stomach and bowel. No evidence of bowel obstruction. No evidence suggesting enteritis or colitis. APPENDIX: The appendix is hyperemic and thickened, measuring up to 12 mm. There is adjacent stranding noted. This is consistent with acute appendicitis. PERITONEUM: 1.3 cm-sized umbilical hernia defect with herniation of fat. 1.5 cm-sized supra-umbilical hernia defect with herniation of fat. No free fluid. No free air. LYMPH NODES: No lymphadenopathy is evident. REPRODUCTIVE: Pelvic congestion on the left side with prominence of the left ovarian vein. The rest is unremarkable. VASCULATURE: No evidence of abdominal aortic aneurysm. BONES: No aggressive appearing osseous lesion. No acute osseous pathology evident. IMPRESSION: 1. Acute appendicitis. 2. No free air, free fluid or fluid collection. /[place]le DICTATED BY: MICAH MORSE MD DATE: 04/06/251311 ELECTRONICALLY SIGNED BY: MICAH MORSE MD DATE: 04/06/251311 ASSESSMENT: Acute Appendicitis as per CT on 04/06/25 Leukocytosis POA Hyperglycemia PLAN: We will admit to medical/surgical floor for further evaluation and management Acute Appendicitis as per CT on 04/06/25 * Surgery has been consulted for evaluation of suspected acute appendicitis. Pending their recommendations. * Patient remains NPO * 0.9% normal saline bolus ordered * Continue with normal saline at 100 mL/hour for adequate hydration * Morphine2 mg IV q.4 hours and hydromorphone ordered for pain management * Zosyn 3.375 g q6h IV ordered. * Zofran 4 mg IV p.r.n. ordered for nausea and vomiting Leukocytosis, POA * Currently on Zosyn (Day 2) * Continue with Zofran 3.375 g q.6 hours IV as ordered * Blood cultures ordered. Pending results * Vital signs q.4 hours ordered Hyperglycemia POA * HbA1c 5.1 * Hyperglycemia and hypoglycemia protocols in place Supportive measures * G I prophylaxis:Protonix 40mg IV BID * DVT prophylaxis:Lovenox 40mg SC BID * Continue trending morning labs and closely follow the patient ATTESTATION BY PHYSICIAN I have seen and examined the patient. I reviewed the documentation, medical decision making, and treatment plan as noted by the resident provider above. I agree with the findings and plan of care. Brigido Peraza MD [facility] MD Apr 07, 2025 10:30
[2025-04-07 12:00] VITALS: BP 119/66; PULSE 69; RESP 18; TEMP 98.4
[2025-04-07 16:00] VITALS: BP 116/59; PULSE 70; RESP 18; TEMP 98
--- NOTE | 2025-04-07 16:46 | PN ---
Consulting physician:Dr Peraza Consulting service: General surgery Reason for consultation: Acute appendicitis History of present illness: This is a 60-year-old female consulted to surgery after presenting to the hospital with concerns of abdominal pain that began the previous day. Patient reports initial discomfort in the epigastric region that migrated to right lower quadrant. Due to significant increase in discomfort patient presented for further evaluation. Initial imaging on admission concerning for acute appendicitis. At time of exam patient with right lower quadrant tenderness with rebound tenderness. Patient currently on IV fluids and IV antibiotics. WBCs today slightly down from yesterday but still elevated at 13.7. Vitals stable. No other acute concerns reported at time of exam Medical history: None PAST SURGICAL HISTORY: x2, Cholecystectomy PAST SOCIAL HISTORY: Drinks socially, Denies smoking or use of illegal drugs FAMILY HISTORY Mother: Hypertension, Diabetes mellitus, Hypothyroidism Father: Coronary Artery Disease, Diabetes mellitus Review of systems: General: No Fever, No Chills, No Night Sweats, No Fatigue, No Malaise, No Appetite, No Other HEENT: No Head Aches, No Visual Changes, No Eye Pain, No Ear Pain, No Dysphasia, No Sinus Congestion, No Post Nasal Drip, No Sore Throat, No Other Pulmonary: No Dyspnea, No Cough, No Pleuritic Chest Pain, No Other Cardiovascular: No: Chest Pain, Palpitations, Orthopnea, Paroxysmal No Dyspnea, Edema, Lt Headedness, Other Gastrointestinal: No: Nausea, Vomiting, Diarrhea, Constipation, Melena, Hematochezia, Other Genitourinary: No Dysuria, No Frequency, No Incontinence, No Hematuria, No Retention, No Other Musculoskeletal: No: other, neck pain, shoulder pain, arm pain, back pain, hand pain, leg pain, foot pain Skin: No Urticaria, No Rash, No Other Neurological: No: Weakness, Numbness, Incoordination, Change in speech, Confusion, Seizures, Other Physical exam: General: Awake alert and oriented Heart: Regular rate and rhythm} Lungs: [Clear to auscultation no distress Abdomen: [Right lower quadrant tenderness with rebound tenderness Assessment: This is a 60-year-old female with concerns of acute appendicitis Plan: At this point in time patient will be scheduled for appendectomy to be performed by Dr. Mcleod Patient to remain NPO Patient to continue with the IV fluids and IV antibiotics Dr. Mcleod has been updated in patient's status and surgical team will follow patient closely Vitals/Labs Vital Signs Date Time Temp Pulse Resp B/P (MAP) Pulse Ox O2 Delivery O2 Flow Rate FiO2 04/07/25 12:00 98.4 69 18 119/66 98 Room Air 21 04/07/25 08:00 0 Laboratory Tests 04/07/25 07:03 Medications Current Medications Sodium Chloride 1,000 ml @ 0 mls/hr ONCE ONCE IV Last administered on 04/06/25at 08:08; Start 04/06/25 at 08:00; Stop 04/06/25 at 08:01; Status DC Ondansetron HCl 4 mg ONCE ONCE IVP Last administered on 04/06/25at 08:08; Start 04/06/25 at 08:00; Stop 04/06/25 at 08:01; Status DC Pantoprazole Sodium 80 mg ONCE ONCE IVP Last administered on 04/06/25at 08:08; Start 04/06/25 at 08:00; Stop 04/06/25 at 08:01; Status DC Pantoprazole Sodium 80 mg/ Sodium Chloride 100 ml @ 10 mls/hr Q10H IV; Start 04/06/25 at 08:00; Stop 04/06/25 at 13:30; Status DC Lidocaine HCl 10 ml ONCE ONCE PO Last administered on 04/06/25at 09:32; Start 04/06/25 at 09:30; Stop 04/06/25 at 09:31; Status DC Al Hydroxide/Mg Hydroxide 30 ml ONCE ONCE PO Last administered on 04/06/25at 09:32; Start 04/06/25 at 09:30; Stop 04/06/25 at 09:31; Status DC Iohexol 75 ml STK-MED ONCE IV; Start 04/06/25 at 10:58; Stop 04/06/25 at 10:58; Status DC Ketorolac Tromethamine 15 mg ONCE ONCE IV Last administered on 04/06/25at 11:50; Start 04/06/25 at 12:00; Stop 04/06/25 at 12:01; Status DC Ondansetron HCl 4 mg ONCE ONCE IVP Last administered on 04/06/25at 12:53; Start 04/06/25 at 12:30; Stop 04/06/25 at 12:34; Status DC Morphine Sulfate 2 mg ONCE ONCE IVP Last administered on 04/06/25at 13:10; Start 04/06/25 at 12:30; Stop 04/06/25 at 12:34; Status DC Piperacillin Sod/ Tazobactam Sod 3.375 gm ONCE ONCE IV Last administered on 04/06/25at 12:54; Start 04/06/25 at 12:30; Stop 04/06/25 at 12:41; Status DC Sodium Chloride 1,000 ml @ 0 mls/hr ONCE ONCE IV Last administered on 04/06/25at 13:10; Start 04/06/25 at 13:30; Stop 04/06/25 at 13:32; Status DC Sodium Chloride 1,000 ml @ 100 mls/hr Q10H IV; Start 04/06/25 at 13:30; Stop 04/06/25 at 13:35; Status DC Diphenhydramine HCl 25 mg Q4H PRN PO; Start 04/06/25 at 13:30; Stop 05/06/25 at 13:29 Acetaminophen 650 mg Q4H PRN PO; Start 04/06/25 at 13:30; Stop 05/06/25 at 13:29 Ondansetron HCl 4 mg Q6H PRN IV; Start 04/06/25 at 13:30; Stop 05/06/25 at 13:29 Pantoprazole Sodium 80 mg/ Sodium Chloride 100 ml @ 10 mls/hr DAILY IV; Start 04/07/25 at 09:00; Stop 04/06/25 at 13:37; Status DC Piperacillin Sod/ Tazobactam Sod 50 ml @ 12.5 mls/hr ZOSY8 IV Last administered on 04/07/25at 13:15; Start 04/06/25 at 21:00; Stop 04/16/25 at 20:59 Morphine Sulfate 2 mg Q4H PRN IV Last administered on 04/06/25at 23:28; Start 04/06/25 at 13:30; Stop 04/13/25 at 13:29 Sodium Chloride 1,000 ml @ 100 mls/hr Q10H IV Last administered on 04/06/25at 13:56; Start 04/06/25 at 13:30; Stop 05/06/25 at 13:29 Hydromorphone HCl 0.5 mg Q4H PRN IV; Start 04/06/25 at 13:30; Stop 04/06/25 at 13:35; Status DC Hydromorphone HCl 0.5 mg Q4H PRN IV; Start 04/06/25 at 14:00; Stop 04/11/25 at 13:29 Pantoprazole Sodium 40 mg BID IVP Last administered on 04/07/25at 08:41; Start 04/06/25 at 21:00; Stop 05/06/25 at 20:59 Dextrose 50 ml AD PRN IV; Start 04/06/25 at 14:30; Stop 05/06/25 at 14:29 Glucagon 1 mg AD PRN IM; Start 04/06/25 at 14:30; Stop 05/06/25 at 14:29 Heparin Sodium (Porcine) 5,000 unit Q12H SQ; Start 04/07/25 at 09:00; Stop 05/07/25 at 08:59 HOA SANDHU Jr. Apr 07, 2025 16:46
[2025-04-07 20:00] VITALS: O2SAT 100
[2025-04-07] MEDS ORDERED: MIDAZOLAM HCL 1 MG/ML 2ML VIAL ONE (21:31)
[2025-04-07] MEDS: BUPIvacaine HCL/EPINEPHrine/PF 0.25% 10ML VIAL IJ ONE (23:15)
[2025-04-08] VITALS (16 sets, daily range): BP systolic 102–133; BP diastolic 53–77; PULSE 54–75; RESP 16–20; TEMP 97.5–98; O2SAT 99–100
[2025-04-08] MEDS ORDERED: GLYCOPYRROLATE 0.2 MG/ML 5 ML VIAL ONE (00:41)
[2025-04-08] MEDS ORDERED: NEOSTIGMINE METHYLSULFATE 1MG/ML IV ONE (00:41)
--- NOTE | 2025-04-08 00:49 | OP ---
Operative Note: OPERATIVE REPORT Date of Service: 04/08/2025 Pre-procedure diagnosis: Acute appendicitis Post-procedure diagnosis: Acute appendicitis Procedure: Laparoscopic appendectomy Surgeon: Dr. Jesús Richey Anesthesia: General Estimated blood loss: 50 mL Complications: None Findings: Acute non perforated appendicitis Drains: None Disposition: Stable to PACU Specimens (if any): Appendix Implants (if any): None INDICATIONS FOR PROCEDURE: This is a 60-year-old female patient who presented with RLQ abdominal pain. CT scan of the abdomen and pelvis done showed appendicitis. Due to their symptoms, labs, clinical exam and imaging findings, a laparoscopic appendectomy was indicated. Informed consent was obtained prior to surgery. We discussed the risks of the procedure including but not limited to bleeding, wound infection, recurrent appendicitis, abscess, small bowel obstruction and injury to bowel. DESCRIPTION OF PROCEDURE: The patient was taken to the operating room and placed on the operating table in supine position. Next, general anesthesia was induced and they were intubated. A wyman was placed to decompress the bladder. Their abdomen was prepped and draped in a sterile fashion. Afterwards, a time-out was called. The patient's identity, procedure, preoperative antibiotics and SCDs were all confirmed. I insufflated the abdominal cavity with a Veress needle. I gained access into the intra- abdominal cavity through a 12-mm left upper quadrant incision using a 5-mm Optiview port with a 5 mm 0-degree scope. I placed 2 additional ports in the following configuration: a 12-mm port in the left abdomen, and a 5-mm port in the suprapubic area. I inspected the abdominal cavity. I saw an acutely inflammed appendix. The appendix was not perforated. I used a Genesis dissector to create a window at the base of the appendix. I stapled across the base of the appendix. I used a Harmonic scalpel or LigaSure to take down the mesoappendix. The appendix was placed in a specimen bag and removed from the body. It was sent off as specimen. The staple line was inspected. No active bleeding was seen. The fascia of the 12 mm ports were closed with an 1-0 Vicryl suture using a Isaias-Zenobia closure device. The pneumoperitoneum was evacuated. Skin incisions were closed with 4-0 Monocryl. 0.25% Marcaine with epinephrine was injected into the incisions and Dermabond applied. Sponge, needle, instrument counts were accurate. The patient tolerated the procedure and was extubated and taken to recovery room in stable condition. JESÚS RICHEY MD Apr 08, 2025 00:49
--- NOTE | 2025-04-08 01:45 | NUR ---
0140: PATIENT ARRIVED FROM PACU WITH NO COMPLICATIONS. PATIENT CONNECTED TO VITAL SIGNS MACHINE FOR POST-OP VITAL SIGNS.
[2025-04-08 04:47] LABS: NUCLEATED RED BLOOD CELLS 0.0 % (0.0-0.19); PLATELET COUNT (AUTO) 160.0 K/uL (130-400); RED BLOOD CELL COUNT(AUTO) 4.35 MIL/uL (4.00-5.50); RED CELL DISTRIBUTION WIDTH 12.7 % (11.0-15.5); WHITE BLOOD COUNT (AUTO) 12.5 K/uL (4.8-10.8)
[2025-04-08 04:59] LABS: INR 1.04 (0.85-1.15)
[2025-04-08 05:08] LABS: ASPARTATE AMINOTRANSFERASE 18.0 U/L (10-37); CREATININE 0.6 mg/dL (0.5-1.0); GLOMERULAR FILTR. RATE CALC 103.0 mL/min (>90); GLUCOSE,RANDOM 93.0 mg/dL (70-105); SODIUM SERUM 139.0 mmol/L (136-145); TOTAL PROTEIN, SERUM 6.5 g/dL (6.0-8.3); UREA NITROGEN, BLOOD 7.0 mg/dL (7-18)
[2025-04-08] MEDS: SIMETHICONE 80 MG TAB.CHEW PO SCH (07:33)
[2025-04-08] MEDS: LIDOCAINE 4% ADH..PATCH TP SCH (08:08)
--- NOTE | 2025-04-08 15:42 | PN ---
GENERAL SURGERY PROGRESS NOTE Date/Time Patient Seen: [ ] Problem List: Acute appendicitis Interval History: Postop day 0 status post laparoscopic appendectomy Patient is complaining of a good amount of incisional pain. She does feel bloated. She has passed a little bit of flatus. Current Medications Medications (Trade) Dose Ordered Sig/Gregg Route Start Time Stop Time Status Last Admin Dose Admin Heparin Sodium (Porcine) (HEParin 5,000 UNIT VIAL) 5,000 unit Q12H SQ 04/07/25 09:00 05/07/25 08:59 04/08/25 08:15 5,000 UNIT Lidocaine (Lidocaine Patch 4%) 1 each DAILY TP 04/08/25 09:00 05/08/25 08:59 04/08/25 08:08 1 EACH Pantoprazole Sodium (PROTonix 40MG INJ) 40 mg BID IVP 04/06/25 21:00 05/06/25 20:59 04/08/25 08:08 40 MG Pantoprazole Sodium 80 mg/ Sodium Chloride 100 ml @ 10 mls/hr DAILY IV 04/07/25 09:00 04/06/25 13:37 DC Pantoprazole Sodium 80 mg/ Sodium Chloride 100 ml @ 10 mls/hr Q10H IV 04/06/25 08:00 04/06/25 13:30 DC Piperacillin Sod/ Tazobactam Sod 50 ml @ 12.5 mls/hr [id number] IV 04/06/25 21:00 04/16/25 20:59 04/08/25 04:35 12.5 MLS/HR Simethicone (Mylicon) 80 mg QID PO 04/08/25 09:00 05/08/25 08:59 04/08/25 08:08 80 MG Sodium Chloride 1,000 ml @ 100 mls/hr Q10H IV 04/06/25 13:30 04/06/25 13:35 DC Sodium Chloride 1,000 ml @ 100 mls/hr Q10H IV 04/06/25 13:30 05/06/25 13:29 04/08/25 05:00 100 MLS/HR Physical Examination: GENERAL: [No acute distress.] HEAD: [Normal with no signs of head trauma.] EYES: [PERRLA, EOMI, conjunctiva and sclera normal.] ENT: [Hearing grossly intact, normal oropharynx.] NECK: [Supple without JVD. There is no tenderness, lymphadenopathy, or masses. No thyromegaly. Normal carotid upstrokes without bruits.] LUNGS: [Clear breath sounds bilaterally. There are right basilar rales one third of the way up the chest. No wheezes, or rhonchi.] HEART: [Normal rate and rhythm. Normal S1 and S2 without mumurs, gallop or rub.] VASC: [Peripheral pulses +2 bilaterally.] ABD: Soft but a little distended, incisions are intact, fair amount of incisi onal tenderness : [Not examined] LYMPH: [No lymphadenopathy noted.] EXT: [No clubbing, cyanosis or edema.] SKIN: [No rashes or lesions noted.] NEURO: [Awake, alert, and oriented x3. No focal sensory or strength deficits noted.] Vital Signs (last 8hr) Date Time Temp Pulse Resp B/P (MAP) Pulse Ox O2 Delivery O2 Flow Rate FiO2 04/08/25 08:00 100 Room Air* 0 21 04/08/25 08:00 97.7 60 16 125/72 100 Room Air Laboratory: [ ] Hematology Labs: Test 04/08/25 04:11 04/07/25 07:07 Range/Units White Blood Count 12.5 H 4.8-10.8 K/uL Red Blood Count 4.35 4.00-5.50 MIL/uL Hemoglobin 12.5 12.0-16.0 g/dL Hematocrit 37.7 36-48 % Mean Corpuscular Volume 86.7 79-99 fL Mean Corpuscular Hemoglobin 28.7 27.0-33.0 pg Mean Corpuscular Hemoglobin Concent 33.2 32.0-36.0 g/dL Red Cell Distribution Width 12.7 11.0-15.5 % Platelet Count 160 130-400 K/uL Mean Platelet Volume 11.3 H 7.5-10.5 fL Nucleated Red Blood Cells 0.0 0.0-0.19 % Erythrocyte Sedimentation Rate 19 0-30 MM/HR Chemistry Labs: Test 04/08/25 10:57 04/08/25 04:11 04/07/25 20:10 04/07/25 07:07 Range/Units Whole Blood Glucose 125 H 70-110 MG/DL Bedside Glucose Comment Notified Nurse Sodium Level 139 136-145 mmol/L Potassium Level 3.5 3.5-5.1 mmol/L Chloride Level 108 101-111 mmol/L Carbon Dioxide Level 24 21-32 mmol/L Blood Urea Nitrogen 7 7-18 mg/dL Creatinine 0.6 0.5-1.0 mg/dL Glomerular Filtration Rate Calc 103 >90 mL/min Random Glucose 93 70-105 mg/dL Total Calcium 7.9 L 8.5-10.1 mg/dL Total Bilirubin 1.2 H 0.2-1.0 mg/dL Direct Bilirubin 0.3 0.0-0.3 mg/dL Aspartate Amino Transf (AST/SGOT) 18 10-37 U/L Alanine Aminotransferase (ALT/SGPT) 26 12-78 U/L Alkaline Phosphatase 58 50-136 U/L C-Reactive Protein, Quantitative 98.20 H 0.5-3.0 mg/L Total Protein 6.5 6.0-8.3 g/dL Albumin 2.8 L 3.5-5.0 g/dL Serum Test, Qualitative NEGATIVE NEGATIVE Procalcitonin < 0.05 L 0.05-0.5 ng/mL Thyroid Stimulating Hormone (TSH) 0.42 # 0.36-3.74 uIU/mL Coagulation Labs: Test 04/08/25 04:11 Range/Units Prothrombin Time 11.0 9.6-11.6 SEC Prothromb Time International Ratio 1.04 0.85-1.15 Activated Partial Thromboplast Time 32.1 26.3-35.5 SEC Diagnostics / Radiology: [Copy/Paste Echos/Imaging Report here] Impression and Plan: 60-year-old female postop day 0 status post laparoscopic appendectomy We will recommend to keep her here for one more night for pain management Anticipate discharge tomorrow KAIDENSEPTEMBER Kiersten GARCIA Apr 08, 2025 15:42
--- NOTE | 2025-04-08 16:24 | PN ---
[facility] PROGRESS NOTE Date of Service: Apr 08, 2025 Time of Service: 16:11 SUBJECTIVE: Patient is a 60-year-old female with no significant past medical history who presented to the emergency department with a 12 hour history of abdominal pain. Initially she noted dull pain around her epigastric area which over the past 6- 8 hours has migrated to the right lower quadrant and become sharper and more constant. The pain was sudden in onset, intermittent in frequency and rated as an 8/10. It radiated down to her pelvic area and is worsened by movement, coughing, and walking. She reported associated nausea, vomiting and loss of appetite. She denied any fever, chills, diarrhea or urinary symptoms. No recent travel or sick contacts. She reported a history of similar pain in the past however not as bad as this time. She denied any cough, shortness of breath, chest pain or palpitations. For this pain she decided to come to the emergency room for evaluation. In the ED, vital signs: temperature was 98.6, pulse 69, blood pressure 145/79, oxygen 99% on room air. Labs showed a WBC 14.8, neutrophils 85.8, chemistry was unremarkable and urinalysis was unremarkable as well. CT abdomen and pelvis without contrast showed acute appendicitis, no free air, fluid collection or free fluid seen. Patient was given a 1L bolus of normal saline and normal saline at 100 mL/hour for adequate hydration. She also recieved Morphine 2 mg IV q.4 hours and hydromorphone for adequate pain management. Blood cultures, ESR and procalcitonin were also ordered. Patient has been placed on NPO pending General surgery recommendations. Patient has been admitted under the hospitalist for further evaluation and management. 04/07/25 Patient was evaluated at the bedside. She is hemodynamically stable. She does not complain of any nausea and vomiting. She complains of mild abdominal discomfort without tenderness and guarding. Her bowel and bladder activities are normal. Her WBCs gradually trending down from 14.8 to 13.7. Patient is in NPO and we are currently awaiting General surgery recommendations. 04/08/25 Patient was evaluated at the bedside. Her vitals are within normal limits. She is a postop day 0 status post laparoscopic appendectomy. The patient tolerated the procedure and was extubated and taken to recovery room in stable condition. There were not any post-operative complications. She complained of incisional pain and mild tenderness around the abdomen. She feels bloated. As per the surgery team: They have recommended her to be here for 1 more night for pain management. Her anticipated discharge is tomorrow. REVIEW OF SYSTEMS CONSTITUTIONAL: Denies fevers, chills, or night sweats. No unintentional weight loss reported. NEUROLOGICAL: Denies headache, motor weakness, sensory deficit. CARDIOVASCULAR: Denies any exertional angina, dyspnea on exertion, orthopnea. PULMONARY: Denies any shortness of breath, cough, phlegm/sputum, hemoptysis, pleuritic chest pain. GASTROINTESTINAL: Complains of mild discomfort around the incisional site. She also has bloating. GENITOURINARY: Denies frequency, urgency, nocturia, hematuria or incontinence PHYSICAL EXAM GENERAL APPEARANCE: The patient is awake, alert, and oriented, in mild distress. NEUROLOGICAL: Motor is 5/5 in bilateral upper and lower extremities proximal to distal. No sensory deficits. CHEST: Normal chest expansion. No Telemetry. LUNGS: Absence of any rales, rhonchi or any wheezing. CARDIOVASCULAR: Regular. S1 and S2 normal. No appreciable rubs, murmurs or gallops. ABDOMEN: Mild tenderness. Bowel sound present. There is no rebound, voluntary guarding, or rigidity. : Deferred. No Leone. EXTREMITIES: Non-edematous and not cyanotic. LABS: Laboratory: Test 04/08/25 15:56 04/08/25 04:11 04/07/25 20:10 04/07/25 07:07 Range/Units Whole Blood Glucose 94 70-110 MG/DL Bedside Glucose Comment Notified Nurse White Blood Count 12.5 H 4.8-10.8 K/uL Red Blood Count 4.35 4.00-5.50 MIL/uL Hemoglobin 12.5 12.0-16.0 g/dL Hematocrit 37.7 36-48 % Mean Corpuscular Volume 86.7 79-99 fL Mean Corpuscular Hemoglobin 28.7 27.0-33.0 pg Mean Corpuscular Hemoglobin Concent 33.2 32.0-36.0 g/dL Red Cell Distribution Width 12.7 11.0-15.5 % Platelet Count 160 130-400 K/uL Mean Platelet Volume 11.3 H 7.5-10.5 fL Nucleated Red Blood Cells 0.0 0.0-0.19 % Prothrombin Time 11.0 9.6-11.6 SEC Prothromb Time International Ratio 1.04 0.85-1.15 Activated Partial Thromboplast Time 32.1 26.3-35.5 SEC Sodium Level 139 136-145 mmol/L Potassium Level 3.5 3.5-5.1 mmol/L Chloride Level 108 101-111 mmol/L Carbon Dioxide Level 24 21-32 mmol/L Blood Urea Nitrogen 7 7-18 mg/dL Creatinine 0.6 0.5-1.0 mg/dL Glomerular Filtration Rate Calc 103 >90 mL/min Random Glucose 93 70-105 mg/dL Total Calcium 7.9 L 8.5-10.1 mg/dL Total Bilirubin 1.2 H 0.2-1.0 mg/dL Direct Bilirubin 0.3 0.0-0.3 mg/dL Aspartate Amino Transf (AST/SGOT) 18 10-37 U/L Alanine Aminotransferase (ALT/SGPT) 26 12-78 U/L Alkaline Phosphatase 58 50-136 U/L C-Reactive Protein, Quantitative 98.20 H 0.5-3.0 mg/L Total Protein 6.5 6.0-8.3 g/dL Albumin 2.8 L 3.5-5.0 g/dL Serum Test, Qualitative NEGATIVE NEGATIVE Erythrocyte Sedimentation Rate 19 0-30 MM/HR Procalcitonin < 0.05 L 0.05-0.5 ng/mL Thyroid Stimulating Hormone (TSH) 0.42 # 0.36-3.74 uIU/mL Current Medications Medications (Trade) Dose Ordered Sig/Gregg Route PRN Reason Start Time Stop Time Status Last Admin Dose Admin Acetaminophen (TYLenol 325MG TAB) 650 mg Q4H PRN PO MILD PAIN (1-3) 04/06/25 13:30 05/06/25 13:29 Dextrose (D50w) 50 ml AD PRN IV HYPOGLYCEMIA PROTOCOL 04/06/25 14:30 05/06/25 14:29 Diphenhydramine HCl (BENAdryl CAP) 25 mg Q4H PRN PO MILD ITCHING/RASH 04/06/25 13:30 05/06/25 13:29 Glucagon (Glucagon 1mg Kit) 1 mg AD PRN IM HYPOGLYCEMIA PROTOCOL 04/06/25 14:30 05/06/25 14:29 Heparin Sodium (Porcine) (HEParin 5,000 UNIT VIAL) 5,000 unit Q12H SQ 04/07/25 09:00 05/07/25 08:59 04/08/25 08:15 5,000 UNIT Hydromorphone HCl (DiLAUDid 0.5MG INJ) 0.5 mg Q4H PRN IV SEVERE PAIN (7-10) 04/06/25 14:00 04/11/25 13:29 Hydromorphone HCl (DiLAUDid 1MG INJ) 0.5 mg Q4H PRN IV SEVERE PAIN (7-10) 04/06/25 13:30 04/06/25 13:35 DC Lidocaine (Lidocaine Patch 4%) 1 each DAILY TP 04/08/25 09:00 05/08/25 08:59 04/08/25 08:08 1 EACH Morphine Sulfate (morPHINE 2MG SYG) 2 mg Q4H PRN IV MODERATE PAIN (4-6) IF NPO 04/06/25 13:30 04/13/25 13:29 04/08/25 01:53 2 MG Ondansetron HCl (zoFRAN 4MG INJ) 4 mg Q6H PRN IV NAUSEA/VOMITING 04/06/25 13:30 05/06/25 13:29 Pantoprazole Sodium (PROTonix 40MG INJ) 40 mg BID IVP 04/06/25 21:00 05/06/25 20:59 04/08/25 08:08 40 MG Pantoprazole Sodium 80 mg/ Sodium Chloride 100 ml @ 10 mls/hr DAILY IV 04/07/25 09:00 04/06/25 13:37 DC Pantoprazole Sodium 80 mg/ Sodium Chloride 100 ml @ 10 mls/hr Q10H IV 04/06/25 08:00 04/06/25 13:30 DC Piperacillin Sod/ Tazobactam Sod 50 ml @ 12.5 mls/hr ZOSY8 IV 04/06/25 21:00 04/16/25 20:59 04/08/25 04:35 12.5 MLS/HR Simethicone (Mylicon) 80 mg QID PO 04/08/25 09:00 05/08/25 08:59 04/08/25 08:08 80 MG Sodium Chloride 1,000 ml @ 100 mls/hr Q10H IV 04/06/25 13:30 04/06/25 13:35 DC Sodium Chloride 1,000 ml @ 100 mls/hr Q10H IV 04/06/25 13:30 05/06/25 13:29 04/08/25 05:00 100 MLS/HR Tramadol HCl (UltRAM) 50 mg Q4H PRN PO MODERATE PAIN (4-6) 04/08/25 01:00 04/13/25 00:59 04/08/25 04:35 50 MG DIAGNOSTICS / RADIOLOGY: [ ] ASSESSMENT: Postop day 0 status post laparoscopic appendectomy Acute Appendicitis as per CT on 04/06/25 Leukocytosis POA Hyperglycemia PLAN: We will admit to medical/surgical floor for further evaluation and management Postop day 0 status post laparoscopic appendectomy * She is a postop day 0 status post laparoscopic appendectomy. The patient tolerated the procedure and was extubated and taken to recovery room in stable condition. There were not any post-operative complications. As per the surgery team: They have recommended her to be here for 1 more night for pain management. Her anticipated discharge is tomorrow. Acute Appendicitis as per CT on 04/06/25 * Surgery has been consulted for evaluation of suspected acute appendicitis. * Patient remained NPO * 0.9% normal saline bolus ordered * Continued with normal saline at 100 mL/hour for adequate hydration * Morphine2 mg IV q.4 hours and hydromorphone ordered for pain management * Zosyn 3.375 g q6h IV ordered. * Zofran 4 mg IV p.r.n. ordered for nausea and vomiting Leukocytosis, POA * Currently on Zosyn (Day 3) * Continue with Zofran 3.375 g q.6 hours IV as ordered * Blood cultures ordered. Pending results * Vital signs q.4 hours ordered Hyperglycemia POA * HbA1c 5.1 * Hyperglycemia and hypoglycemia protocols in place Supportive measures * G I prophylaxis:Protonix 40mg IV BID * DVT prophylaxis:Lovenox 40mg SC BID * Continue trending morning labs and closely follow the patient ATTESTATION BY PHYSICIAN I have seen and examined the patient. I reviewed the documentation, medical decision making, and treatment plan as noted by the resident provider above. I agree with the findings and plan of care. Brigido Peraza MD [facility] Apr 08, 2025 16:24
[2025-04-09 03:53] VITALS: BP 106/62; PULSE 62; RESP 20; TEMP 98.3
[2025-04-09 05:19] LABS: NUCLEATED RED BLOOD CELLS 0.0 % (0.0-0.19); PLATELET COUNT (AUTO) 180.0 K/uL (130-400); RED BLOOD CELL COUNT(AUTO) 4.19 MIL/uL (4.00-5.50); RED CELL DISTRIBUTION WIDTH 12.9 % (11.0-15.5); WHITE BLOOD COUNT (AUTO) 9.3 K/uL (4.8-10.8)
[2025-04-09 05:57] LABS: CREATININE 0.6 mg/dL (0.5-1.0); GLOMERULAR FILTR. RATE CALC 103.0 mL/min (>90); GLUCOSE,RANDOM 90.0 mg/dL (70-105); SODIUM SERUM 143.0 mmol/L (136-145); UREA NITROGEN, BLOOD 6.0 mg/dL (7-18)
[2025-04-09 08:00] VITALS: BP 157/75; PULSE 65; RESP 19; TEMP 97.9
[2025-04-09 08:02] VITALS: O2SAT 99
[2025-04-09] MEDS: PoTASSium chloRIDE 20MEQ ER 20 MEQ ERTAB PO PRN (08:40)
[2025-04-09] MEDS ORDERED: PoTASSium chl 10% ELIXIR 20MEQ 20 MEQ/15 ML UDCUP PO PRN (09:00)
--- NOTE | 2025-04-09 11:45 | DS ---
Discharge Summary Hospital Course Summary: Patient is a 60-year-old female with no significant past medical history who presented to the emergency department with a 12 hour history of abdominal pain. Initially she noted dull pain around her epigastric area which over the past 6- 8 hours has migrated to the right lower quadrant and become sharper and more constant. The pain was sudden in onset, intermittent in frequency and rated as an 8/10. It radiated down to her pelvic area and is worsened by movement, coughing, and walking. She reported associated nausea, vomiting and loss of appetite. She denied any fever, chills, diarrhea or urinary symptoms. No recent travel or sick contacts. She reported a history of similar pain in the past however not as bad as this time. She denied any cough, shortness of breath, chest pain or palpitations. For this pain she decided to come to the emergency room for evaluation. In the ED, vital signs: temperature was 98.6, pulse 69, blood pressure 145/79, oxygen 99% on room air. Labs showed a WBC 14.8, neutrophils 85.8, chemistry was unremarkable and urinalysis was unremarkable as well. CT abdomen and pelvis without contrast showed acute appendicitis, no free air, fluid collection or free fluid seen. Patient was given a 1L bolus of normal saline and normal saline at 100 mL/hour for adequate hydration. She also received Morphine 2 mg IV q.4 hours and hydromorphone for adequate pain management. Patient was admitted under the hospitalist for further evaluation and management. During the hospital stay, As per the surgery team, Dr Mcleod performed Laparoscopic appendectomy. She tolerated the procedure and was extubated and taken to recovery room in stable condition. There were not any post-operative complications. She complained of mild incisional pain and mild tenderness around the abdomen. The patient remained hemodynamically stable throughout her hospitalization. Pain was well controlled with scheduled and as needed analgesics and she was gradually advanced to a regular diet as tolerated. She has been prescribed Lidocaine patch 12 hours on and 12 hours off or her pain relief. She was ambulating without difficulty, voiding spontaneously and had bowel movement. Surgical incisions were clean dry and intact. Given her stable condition and adequate recovery, she was deemed fit for discharge with instruction for wound care, activity as tolerated and follow up with PCP and Dr. Mcleod. Cap Machine Operator(s): General Surgery: Dr. Padmini Mcleod Procedure(s): Laparoscopic appendectomy [facility] [address] [place] [address] IMAGING REPORT Addendum PATIENT: ALPA KENNEDY MR#: [id number] : 1965 SEX: F AGE: 60 LOCATION: [facility] ORDER 0 STATUS: REG ER REPORT#: [id number] SERVICE 9 REASON: EPIGASTRIC PAIN ORDERING PHYSICIAN: LUIS TOLEDO MD PROCEDURE: ABD PEL W - CT ABDOMEN/PELVIS W/CONTRAST ADDENDUM REPORT ADDENDUM: Results were shared by telephone at 13:18 pm on 04-06-25 and acknowledged by Carlos PATEL Ms Nando Anderson /[place] EXAM: CT Abdomen and Pelvis with IV contrast CLINICAL HISTORY: EPIGASTRIC PAIN TECHNIQUE: Axial computed tomography images of the abdomen and pelvis with intravenous contrast. CONTRAST: with intravenous contrast. COMPARISON: None provided. FINDINGS: LUNG BASES: The lung bases appear clear. No pleural effusions are seen. LIVER: Unremarkable. GALLBLADDER AND BILE DUCTS: Cholecystectomy. No biliary ductal dilatation is evident. PANCREAS: Unremarkable. SPLEEN: Unremarkable. ADRENAL GLANDS: Unremarkable. KIDNEYS, URETERS, AND BLADDER: The kidneys appear within normal limits. There is no hydronephrosis or hydroureter. No urinary calculi are seen. STOMACH AND BOWEL: Unremarkable appearance of the stomach and bowel. No evidence of bowel obstruction. No evidence suggesting enteritis or colitis. APPENDIX: The appendix is hyperemic and thickened, measuring up to 12 mm. There is adjacent stranding noted. This is consistent with acute appendicitis. PERITONEUM: 1.3 cm-sized umbilical hernia defect with herniation of fat. 1.5 cm-sized supra-umbilical hernia defect with herniation of fat. No free fluid. No free air. LYMPH NODES: No lymphadenopathy is evident. REPRODUCTIVE: Pelvic congestion on the left side with prominence of the left ovarian vein. The rest is unremarkable. VASCULATURE: No evidence of abdominal aortic aneurysm. BONES: No aggressive appearing osseous lesion. No acute osseous pathology evident. IMPRESSION: 1. Acute appendicitis. 2. No free air, free fluid or fluid collection. /Cameron DICTATED BY: MICAH MORSE MD DATE: 04/06/25 1333 ELECTRONICALLY SIGNED BY: DATE: EXAM: CT Abdomen and Pelvis with IV contrast CLINICAL HISTORY: EPIGASTRIC PAIN TECHNIQUE: Axial computed tomography images of the abdomen and pelvis with intravenous contrast. CONTRAST: with intravenous contrast. COMPARISON: None provided. FINDINGS: LUNG BASES: The lung bases appear clear. No pleural effusions are seen. LIVER: Unremarkable. GALLBLADDER AND BILE DUCTS: Cholecystectomy. No biliary ductal dilatation is evident. PANCREAS: Unremarkable. SPLEEN: Unremarkable. ADRENAL GLANDS: Unremarkable. KIDNEYS, URETERS, AND BLADDER: The kidneys appear within normal limits. There is no hydronephrosis or hydroureter. No urinary calculi are seen. STOMACH AND BOWEL: Unremarkable appearance of the stomach and bowel. No evidence of bowel obstruction. No evidence suggesting enteritis or colitis. APPENDIX: The appendix is hyperemic and thickened, measuring up to 12 mm. There is adjacent stranding noted. This is consistent with acute appendicitis. PERITONEUM: 1.3 cm-sized umbilical hernia defect with herniation of fat. 1.5 cm-sized supra-umbilical hernia defect with herniation of fat. No free fluid. No free air. LYMPH NODES: No lymphadenopathy is evident. REPRODUCTIVE: Pelvic congestion on the left side with prominence of the left ovarian vein. The rest is unremarkable. VASCULATURE: No evidence of abdominal aortic aneurysm. BONES: No aggressive appearing osseous lesion. No acute osseous pathology evident. IMPRESSION: 1. Acute appendicitis. 2. No free air, free fluid or fluid collection. /Cameron DICTATED BY: MICAH MORSE MD DATE: 04/06/25 1312 ELECTRONICALLY SIGNED BY: MICAH MORSE MD DATE: 04/06/25 1312 Assessment/Plan: ASSESSMENT: Postop day 0 status post laparoscopic appendectomy Acute Appendicitis as per CT on 04/06/25 Leukocytosis POA Hyperglycemia PLAN: We will admit to medical/surgical floor for further evaluation and management Postop day 0 status post laparoscopic appendectomy * She is a postop day 0 status post laparoscopic appendectomy. The patient tolerated the procedure and was extubated and taken to recovery room in stable condition. There were not any post-operative complications. As per the surgery team: They have recommended her to be here for 1 more night for pain management. Her anticipated discharge is tomorrow. Acute Appendicitis as per CT on 04/06/25 * Surgery has been consulted for evaluation of suspected acute appendicitis. * Patient remained NPO * 0.9% normal saline bolus ordered * Continued with normal saline at 100 mL/hour for adequate hydration * Morphine2 mg IV q.4 hours and hydromorphone ordered for pain management * Zosyn 3.375 g q6h IV ordered. * Zofran 4 mg IV p.r.n. ordered for nausea and vomiting Leukocytosis, POA * Currently on Zosyn (Day 3) * Continue with Zofran 3.375 g q.6 hours IV as ordered * Blood cultures ordered. Pending results * Vital signs q.4 hours ordered Hyperglycemia POA * HbA1c 5.1 * Hyperglycemia and hypoglycemia protocols in place Supportive measures * G I prophylaxis:Protonix 40mg IV BID * DVT prophylaxis:Lovenox 40mg SC BID * Continue trending morning labs and closely follow the patient Discharge Instructions: Keep surgical incisions clean and dry: Change dressings as directed and monitor for redness swelling or discharge Take prescribed pain medications as directed Avoid heavy lifting or strenuous activity Regular diet as tolerated: Increase fluids and fiber to prevent constipation Follow up with PCP in 1-2 days Follow up with Dr. Mcleod in 1-2 weeks Call 911 or come to ED for any signs of infections, high-grade fever and continous discharge from surgical site Home Medications: Reported Medications Sumatriptan Succinate (Sumatriptan Succinate) 50 Mg Tablet, 50 MG PO BID PRN for MIGRAINE HEADACHE 04/06/25 Discontinued Reported Medications Propranolol HCl (Propranolol HCl) 10 Mg Tablet, 10 MG PO DAILY, TAB 12/24/18 Methimazole (Methimazole) 10 Mg Tablet, 10 MG PO DAILY, TAB 12/24/18 Discontinued Scripts Pantoprazole Sodium (Protonix) 40 Mg Ectab, 1 TAB PO DAILY for 30 Days, #30 TAB 0 Refills Prov:DAVID JIMENEZ MD 08/01/24 Sucralfate (Carafate Susp) 1 Gram/10 Ml Susp, 10 ML PO QID for 30 Days, #1260 ML 0 Refills before food and bedtime Prov:DAVID JIMENEZ MD 08/01/24 Pantoprazole Sodium (Pantoprazole Sodium) 20 Mg Tablet.dr, 20 MG PO DAILY, #5 TAB Prov:LUIS ALBERTO ALMAGUER MD 06/15/23 Ondansetron (Ondansetron Odt) 4 Mg Tab.rapdis, 4 MG PO Q6HPRN PRN for nausea, #12 TAB 0 Refills Prov:LUIS ALBERTO ALMAGUER MD 06/15/23 Metronidazole (Metronidazole) 500 Mg Tablet, 500 MG PO TID for 5 Days, TAB Prov:LUPIS KEYES NP 12/27/18 Levofloxacin (Levofloxacin) 500 Mg Tablet, 500 MG PO DAILY for 5 Days, TAB Prov:LUPIS KEYES NP 12/27/18 Time spent arranging discharge: 31-60 minutes ATTESTATION BY PHYSICIAN I have seen and examined the patient. I reviewed the documentation, medical decision making, and treatment plan as noted by the resident provider above. I agree with the findings and plan of care. Brigido Peraza MD [facility],MARIANO GARCIA Apr 09, 2025 11:44
[2025-04-09 12:00] VITALS: BP 147/74; PULSE 64; RESP 19; TEMP 98
[2025-04-09] MEDS ORDERED: LIDO1ADH71 TP (14:51)
--- NOTE | 2025-04-09 16:20 | PN ---
Patient doing better today She is passing flatus White blood count is normal Abdomen is much less distended with appropriate incisional tenderness Agree with patient being discharged today and she can follow up in my office in two weeks Vitals/Labs Vital Signs Date Time Temp Pulse Resp B/P (MAP) Pulse Ox O2 Delivery O2 Flow Rate FiO2 04/09/25 08:02 99 Room Air* 0 21 04/09/25 08:00 97.9 65 19 157/75 Laboratory Tests 04/09/25 04:37 Medications Current Medications Sodium Chloride 1,000 ml @ 0 mls/hr ONCE ONCE IV Last administered on 04/06/25at 08:08; Start 04/06/25 at 08:00; Stop 04/06/25 at 08:01; Status DC Ondansetron HCl 4 mg ONCE ONCE IVP Last administered on 04/06/25at 08:08; Start 04/06/25 at 08:00; Stop 04/06/25 at 08:01; Status DC Pantoprazole Sodium 80 mg ONCE ONCE IVP Last administered on 04/06/25at 08:08; Start 04/06/25 at 08:00; Stop 04/06/25 at 08:01; Status DC Pantoprazole Sodium 80 mg/ Sodium Chloride 100 ml @ 10 mls/hr Q10H IV; Start 04/06/25 at 08:00; Stop 04/06/25 at 13:30; Status DC Lidocaine HCl 10 ml ONCE ONCE PO Last administered on 04/06/25at 09:32; Start 04/06/25 at 09:30; Stop 04/06/25 at 09:31; Status DC Al Hydroxide/Mg Hydroxide 30 ml ONCE ONCE PO Last administered on 04/06/25at 09:32; Start 04/06/25 at 09:30; Stop 04/06/25 at 09:31; Status DC Iohexol 75 ml STK-MED ONCE IV; Start 04/06/25 at 10:58; Stop 04/06/25 at 10:58; Status DC Ketorolac Tromethamine 15 mg ONCE ONCE IV Last administered on 04/06/25at 11:50; Start 04/06/25 at 12:00; Stop 04/06/25 at 12:01; Status DC Ondansetron HCl 4 mg ONCE ONCE IVP Last administered on 04/06/25at 12:53; Start 04/06/25 at 12:30; Stop 04/06/25 at 12:34; Status DC Morphine Sulfate 2 mg ONCE ONCE IVP Last administered on 04/06/25at 13:10; Start 04/06/25 at 12:30; Stop 04/06/25 at 12:34; Status DC Piperacillin Sod/ Tazobactam Sod 3.375 gm ONCE ONCE IV Last administered on 04/06/25at 12:54; Start 04/06/25 at 12:30; Stop 04/06/25 at 12:41; Status DC Sodium Chloride 1,000 ml @ 0 mls/hr ONCE ONCE IV Last administered on 04/06/25at 13:10; Start 04/06/25 at 13:30; Stop 04/06/25 at 13:32; Status DC Sodium Chloride 1,000 ml @ 100 mls/hr Q10H IV; Start 04/06/25 at 13:30; Stop 04/06/25 at 13:35; Status DC Diphenhydramine HCl 25 mg Q4H PRN PO; Start 04/06/25 at 13:30; Stop 05/06/25 at 13:29 Acetaminophen 650 mg Q4H PRN PO Last administered on 04/08/25at 19:05; Start 04/06/25 at 13:30; Stop 05/06/25 at 13:29 Ondansetron HCl 4 mg Q6H PRN IV; Start 04/06/25 at 13:30; Stop 05/06/25 at 13:29 Pantoprazole Sodium 80 mg/ Sodium Chloride 100 ml @ 10 mls/hr DAILY IV; Start 04/07/25 at 09:00; Stop 04/06/25 at 13:37; Status DC Piperacillin Sod/ Tazobactam Sod 50 ml @ 12.5 mls/hr [id number] IV Last administered on 04/09/25at 13:22; Start 04/06/25 at 21:00; Stop 04/16/25 at 20:59 Morphine Sulfate 2 mg Q4H PRN IV Last administered on 04/08/25at 01:53; Start 04/06/25 at 13:30; Stop 04/13/25 at 13:29 Sodium Chloride 1,000 ml @ 100 mls/hr Q10H IV Last administered on 04/09/25at 12:18; Start 04/06/25 at 13:30; Stop 05/06/25 at 13:29 Hydromorphone HCl 0.5 mg Q4H PRN IV; Start 04/06/25 at 13:30; Stop 04/06/25 at 13:35; Status DC Hydromorphone HCl 0.5 mg Q4H PRN IV; Start 04/06/25 at 14:00; Stop 04/11/25 at 13:29 Pantoprazole Sodium 40 mg BID IVP Last administered on 04/09/25at 08:02; Start 04/06/25 at 21:00; Stop 05/06/25 at 20:59 Dextrose 50 ml AD PRN IV; Start 04/06/25 at 14:30; Stop 05/06/25 at 14:29 Glucagon 1 mg AD PRN IM; Start 04/06/25 at 14:30; Stop 05/06/25 at 14:29 Heparin Sodium (Porcine) 5,000 unit Q12H SQ Last administered on 04/09/25at 08:17; Start 04/07/25 at 09:00; Stop 05/07/25 at 08:59 Midazolam HCl 2 mg STK-MED ONCE .ROUTE; Start 04/07/25 at 21:31; Stop 04/07/25 at 21:31; Status DC Rocuronium [place] 50 mg STK-MED ONCE .ROUTE; Start 04/07/25 at 21:31; Stop 04/07/25 at 21:31; Status DC Propofol 200 mg STK-MED ONCE IV; Start 04/07/25 at 21:31; Stop 04/07/25 at 21:31; Status DC Fentanyl Citrate 100 mcg STK-MED ONCE .ROUTE; Start 04/07/25 at 21:31; Stop 04/07/25 at 21:32; Status DC Acetaminophen 100 ml @ As Directed STK-MED ONCE .ROUTE; Start 04/07/25 at 21:44; Stop 04/07/25 at 21:44; Status DC Fentanyl Citrate 100 mcg STK-MED ONCE .ROUTE; Start 04/07/25 at 21:45; Stop 04/07/25 at 21:45; Status DC Bupivacaine HCl/ Epinephrine Bitart 10 ml STK-MED ONCE IJ Last administered on 04/07/25at 23:15; Start 04/07/25 at 22:03; Stop 04/07/25 at 22:04; Status DC Ropivacaine 150 mg STK-MED ONCE .ROUTE; Start 04/07/25 at 22:09; Stop 04/07/25 at 22:09; Status DC Glycopyrrolate 1 mg STK-MED ONCE .ROUTE; Start 04/08/25 at 00:41; Stop 04/08/25 at 00:42; Status DC Neostigmine Methylsulfate 10 mg STK-MED ONCE IV; Start 04/08/25 at 00:41; Stop 04/08/25 at 00:42; Status DC Fentanyl Citrate 100 mcg STK-MED ONCE .ROUTE; Start 04/08/25 at 00:42; Stop 04/08/25 at 00:42; Status DC Lidocaine 1 each DAILY TP Last administered on 04/09/25at 08:02; Start 04/08/25 at 09:00; Stop 05/08/25 at 08:59 Simethicone 80 mg QID PO Last administered on 04/09/25at 13:28; Start 04/08/25 at 09:00; Stop 05/08/25 at 08:59 Tramadol HCl 50 mg Q4H PRN PO Last administered on 04/09/25at 03:25; Start 04/08/25 at 01:00; Stop 04/13/25 at 00:59 Potassium Chloride 100 ml @ 100 mls/hr AD PRN IV; Start 04/09/25 at 09:00; Stop 05/09/25 at 08:59 Potassium Chloride 20 meq AD PRN PO; Start 04/09/25 at 09:00; Stop 05/09/25 at 08:59 Potassium Chloride 20 meq AD PRN PO Last administered on 04/09/25at 08:40; Start 04/09/25 at 09:00; Stop 05/09/25 at 08:59 JESÚS RICHEY MD Apr 09, 2025 16:20
--- NOTE | 2025-04-09 17:46 | NUR ---
DISCHARGE PIV DC'D PRIOR TO DISCHARGE PATIENT INFORMED OF FOLLOW UP APPOINTMENTS QUESTIONS ANSWERED PRIOR TO DISCHARGE
== END 2025-04-09 17:30 | disposition home or self-care (01) | DRG 399 ==
LOC: EDH 07:40 → EDHIP 13:19 → 3AH 22:37
PROVIDERS: ADMIT Internal Medicine; ATTEND Internal Medicine
PROC: 0DTJ4ZZ Resection of Appendix, Percutaneous Endoscopic Approach (ICD-10-PCS; principal; 2025-04-08)
DX: K35.80 Unspecified acute appendicitis (principal); R73.9 Hyperglycemia, unspecified; K58.9 Irritable bowel syndrome, unspecified; Z83.3 Family history of diabetes mellitus; Z82.49 Family history of ischemic heart disease and other diseases of the circulatory system
CPT/HCPCS: 36415; 74177; 80048; 80053; 80076; 81003; 82948; 83036; 83690; 84145; 84443; 84484; 84703; 85025; 85027; 85610; 85651; 85730; 86140; 87040; 93005; 96374; 96375; 99285; G0378; J1644; J1885; J2250; J2270; J2405; J2470; J2543; J2704; J2710; J2795; J3010; J3490; J7030; Q9967; A4215; A4216; A4930; C1713